=== PATIENT | male | born 1970 | race African-American/Black ===

== ENCOUNTER 2016-05-31 08:05 | Observation (INO) ==
[2016-05-31] MEDS ORDERED: ASPIRIN 325 MG TABLET PO STA (08:17)
[2016-05-31] MEDS ORDERED: ONDANSETRON 4 MG/2 ML VIAL IV STA (08:20)
[2016-05-31] MEDS ORDERED: MORPHINE 2 MG/1 ML SYRINGE IV STA (08:20)
[2016-05-31] MEDS ORDERED: ENOXAPARIN 80 MG/0.8 ML SYRINGE SUBCUT STA (08:20)
--- NOTE | 2016-05-31 08:24 | Emergency Department Note ---
Jarred Gaming Brittany, am scribing for, and in the presence of, Surjit Sanders MD 08: 22. Marilyn Gaming James D, MD, personally performed the services described in this documentation, ascribed by Haritha Stern in my presence, and it is both accurate and complete 823 . Arrival - Arrival Chief Complaint: Chest Pain Stated Complaint: CHEST PAINS ED Nursing Triage Note: C/o midsternal chest pain radiating to left arm-onset yesterday. Reports SOB with exertion. Denies N/V. Mode of Arrival: Ambulatory Limitations: No Limitations Source: Patient - History of Present Illness HPI Narrative: This is a a 46 y/o male,who presetns to the ED wiht c/o CP which started yesterday. He reports he was at rest when the chest pain started. He states the pain radiates down his left arm. He localizes the chest pain to the mid sternum. He denies any N/V, cough or diaphoresis. He states the chest pain is worse with exertion. He reports being SOB with the chest pain . He states at night he has noticed orthopnea. Pt has no other complaints/pain in the ED at this time. Pt denies a PMHx. Pt denies a social Hx. Pt denies a family medical Hx. Pt is a current every day smoker, uses alcohol frequently and uses marijuana. Onset (ago): day(s) (Started yesterday) Consistency: constant Severity: moderate Allergies/Adverse Reactions: Allergies Allergy/AdvReac Type Severity Reaction Status Date / Time No Known Allergies Allergy Verified 05/31/16 08:14 Home Medications: Home Medications Medication Instructions Recorded Confirmed Type No Known Home Medications [No 05/31/16 05/31/16 History Known Home Medications] Review of System - Review of System 12 point system: reviewed and no additional remarkable complaints except as stated - Review of System Constitutional: Absent: diaphoresis Respiratory: Absent: cough Cardiovascular: Present: chest pain, dyspnea on exertion, orthopnea, other ( Dyspnea) Gastrointestinal: Absent: nausea, vomiting Medical,Surgical,& Family Hx - Social History Smoking Status: Current every day smoker Frequency of Alcohol Use: Frequently Type of Drug Use: Marijuana Exam Vital Signs: Vital Signs Temperature 96.4 F L 05/31/16 08:43 Pulse Rate 84 05/31/16 08:43 Respiratory Rate 18 05/31/16 08:43 Blood Pressure 175/106 05/31/16 08:43 O2 Sat by Pulse Oximetry 97 05/31/16 08:09 GENERAL: This is a well-nourished well-developed black male in no apparent distress. VITAL SIGNS: Reviewed HEENT: Head is atraumatic and normocephalic. Pupils are equal round react to light. Extraocular movements are intact. Oropharynx is benign with moist mucous membranes. NECK: Neck is soft and supple without tenderness. There are no masses. There is no lymphadenopathy. LUNGS: Lungs are clear to auscultation. Chest rises symmetrically. There is no chest wall tenderness. CV: Heart is regular rate and rhythm without murmurs rubs or gallops. ABDOMEN: Abdomen is soft, nontender to palpation. There are no abdominal abnormal masses palpated. There is no organomegaly. Bowel sounds are present and active. SKIN: Skin is warm and dry. No rash. EXTREMITIES: Patient has full range of motion without tenderness. There is no pedal edema. NEUROLOGIC: Awake alert and oriented 4. Cranial nerves II through XII are grossly intact. Motor is 5 over 5 in all extremities bilaterally. Course - Consultations Consultation #1: Discussed with hospitalist. Patient will be admitted to their service. Time: 09:39 Results - Labs CBC & BMP: 05/31/16 08:17 05/31/16 08:17 Lab Results: I have reviewed the patients labs Labs: Laboratory Tests 05/31/16 05/31/16 05/31/16 08:17 08:17 08:17 INR 1.1 Troponin I < 0.015 Urine Opiates Screen Negative Ur Barbiturates Screen Negative Ur Phencyclidine Scrn Negative U Amphetamine/Methamph Negative U Benzodiazepines Scrn Negative U Cocaine Metab Screen Negative U Cannabinoids Screen Positive H - EKG EKG results: interpreted by ERMD - Impressions EKG: Normal sinus rhythm with a rate 86, low voltage QRS, normal axis., Nonspecific ST-T wave changes - Diagnostic Findings Procedure: Chest x-ray: image reviewed by me (Mild cardiomegaly, no pleural effusions, no infiltrates.) Disposition Clinical Impression: Chest pain Case discussed with: patient Disposition: Still a Patient Condition: Stable Time of Disposition: 09:39
[2016-05-31] MEDS ORDERED: ONDANSETRON 4 MG/2 ML VIAL ONE (08:49)
[2016-05-31] MEDS ORDERED: ENOXAPARIN 80 MG/0.8 ML SYRINGE SUBCUT ONE (08:49)
[2016-05-31] MEDS ORDERED: MORPHINE 2 MG/1 ML SYRINGE ONE (08:50)
[2016-05-31] MEDS ORDERED: ASPIRIN 325 MG TABLET ONE (08:50)
[2016-05-31 08:54] LABS: Basophils # 0.1 10*3/uL (0.0-0.2); Basophils % 0.7 % (0.0-0.8); Eosinophils # 0.2 10*3/uL (0.0-0.87); Eosinophils % 2.4 % (0.00-10.9); Hemoglobin 17.4 GM/DL (14.0-18.0); Immature Granulocytes % 0.5 %; Immature Granulocytes Absolute 0.04 #; Lymphocytes # 2.9 10*3/uL (1.4-4.0); Lymphocytes % 36.6 % (21.2-54.2); Mean Corpuscular HGB Conc 34.1 GM/DL (32-36); Mean Corpuscular Hemoglobin 28 PG (27-34); Mean Corpuscular Volume 82.1 FL (87-102); Mean Platelet Volume 9.6 FL (9.6-12.0); Monocytes # 0.6 10*3/uL (0.11-0.8); Monocytes % 7.5 % (1.7-12.7); Neutrophils # 4.2 10*3/uL (1.4-7.4); Neutrophils % 52.3 % (38.7-73.9); Platelet Count 271 T/CUMM (130-400); Red Blood Count 6.21 MC/CUMM (3.8-5.5); Red Cell Distribution Width 14.5 % (9.3-17.3)
--- NOTE | 2016-05-31 09:00 | XRay Report ---
History: Chest pain which radiates down left arm Date: 05/31/2016 at 7:50 AM Study: Chest x-ray PA and lateral Comparison exam: No previous The cardiac silhouette is minimally prominent. The mediastinal contours are unremarkable. The pulmonary vasculature is not engorged. The lungs and pleural spaces are clear. There is a minimal thoracic spondylosis. Impression: No acute cardiopulmonary process. Minimal cardiomegaly PROCEDURE INTERPRETED AT [facility] DEPARTMENT OF RADIOLOGY Final Report Signed by: Dr. Barbara Gill
[2016-05-31 09:03] LABS: Apearance,Urine CLEAR (Clear); Bilirubin,Urine Negative (Negative); Blood, Urine Negative (Negative); Glucose,Urine (UA) Negative (Negative); Ketones,Urine Negative (Negative); Nitrite,Urine Negative (Negative); Protein,Urine Negative; RBC,Urine <1 /HPF (0-4); Squamous Epithelial Cell,Urine Occasional /HPF (0-10); Urine Color Yellow (Yellow); Urine Specific Gravity 1.016 (1.001-1.035); Urine Urobilinogen < 2.0 EU/DL (0.2-1.0); WBC,Urine 1 /HPF (0-6)
[2016-05-31 09:10] LABS: Barbiturates Screen,Urine Negative (Negative); Benzodiazepines Screen,Urine Negative (Negative); Cannabinoid Screen,Urine Positive (Negative); INR 1.1; Opiate Screen,Urine Negative (Negative); PT Patient Result 11.3 SECS; Partial Thromboplastin Time 28.5 SECS (0-40); Phencyclidine Screen,Urine Negative (Negative)
[2016-05-31 09:13] LABS: Alanine Aminotransferase 35 U/L (16-61); Albumin 3.7 G/DL (3.4-5.0); Alkaline Phosphatase 80 U/L (45-117); Aspartate Amino Transferase 16 U/L (0-37); Bilirubin,Total < 0.39 MG/DL (0.2-1.0); Blood Urea Nitrogen 13 MG/DL (7-18); Glucose 124 MG/DL (74-106); Osmolality,Calculated 288.7 MOS/KG (273-304); Potassium 4.3 MMOL/L (3.5-5.1); Sodium 145 MMOL/L (136-145); Total Protein 6.9 G/DL (6.4-8.3)
--- NOTE | 2016-05-31 09:43 | EKG Report ---
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
[2016-05-31] MEDS ORDERED: METOPROLOL TARTRATE 5 MG/5 ML VIAL IV ONE (10:16)
[2016-05-31] MEDS ORDERED: ONDANSETRON 4 MG/2 ML VIAL IV PRN (10:21)
[2016-05-31] MEDS ORDERED: ACETAMINOPHEN 325 MG TABLET PO PRN (10:21)
[2016-05-31] MEDS ORDERED: NICOTINE 21 MG/24 HR PATCH TRANSDERM PRN (10:21)
[2016-05-31] MEDS ORDERED: METOPROLOL TARTRATE 5 MG/5 ML VIAL IV STA (10:30)
--- NOTE | 2016-05-31 10:43 | Hospitalist History & Physical ---
Assessment and Plan - Time spent with patient Time spent with patient: Less than 30 minutes Time spent discussing smoking cessation with patient: more than 10 minutes (1) Chest pain Status: Acute Assessment and plan: Chest pain with associated shortness of breath. Patient rates this as a 7 out of 10. Patient will be admitted for outpatient observation with a cardiology consult. Preliminary labs reveal no evidence of acute ischemic process. Repeat labs. Current Visit: Yes History of Present Illness Chief complaint: chest pain History of present illness: Mr. Christian is a 46 year old -[place] male with risk factors significant for hypertension, smoking, overweight who presents to the ED this morning with complaint of chest pain with associated shortness of breath since yesterday afternoon. The patient states that this pain radiates down his left arm, and he is experiencing tingling in his fingers. He reports that the pain began yesterday around 2:00 PM while watching his kids play. He said he felt a sharp pain in his left chest area then became continuous overnight. He has no known cardiac history or medical history as he does not see a physician for any matter. He does however admit to smoking cigarettes (1 pack a day) as well as marijuana and drinks 4-6 beers daily. On admission, preliminary EKG is abnormal , cardiac biomarkers are negative, and the patient rates his pain as 7 out of 10. It is of note that the patient tested positive for cannabinoids. Patient denies blurry vision, palpitations, orthopnea, headache. He will be admitted to outpatient observation with a cardiology consult for further recommendations. Home Medications Medication Instructions Recorded Confirmed Type No Known Home Medications [No 05/31/16 05/31/16 History Known Home Medications] Allergies Allergy/AdvReac Type Severity Reaction Status Date / Time No Known Allergies Allergy Verified 05/31/16 08:14 Medical,Surgical,& Family Hx - Social History Smoking Status: Current every day smoker Have you smoked in the last 12 months: Yes Time spent discussing smoking cessation with patient: more than 10 minutes Frequency of Alcohol Use: Frequently Type of Drug Use: Marijuana Marital Status: Lives With:: Spouse Functional capacity: independent ambulation - Constitutional Constitutional: Absent: chills, daytime sleepiness, fatigue, fever(s), headache( s), night sweats, stops breathing during sleep, weakness - EENT Eyes: Present: requires corrective lense (uses reading glasses). Absent: blurry vision Nose, mouth and throat: Absent: headache(s), neck mass, neck pain, sinus pressure, sore throat - Cardiovascular Cardiovascular: Present: chest pain at rest, dyspnea, radiating jaw, neck or arm pain. Absent: chest pain with activity, diaphoresis, edema, palpitations - Respiratory Respiratory: Present: dyspnea, snoring, pain on inspiration. Absent: cough, hemoptysis, wheezing - Gastrointestinal Gastrointestinal: Absent: abdominal pain, change in bowel habits, constipation, nausea, vomiting - Neurological Neurological: Present: numbness (in left fingers) Exam - Constitutional Vitals: Period Temp Pulse Resp BP Sys/Alvarado Pulse Ox Last 24 Hr 96.4 F-96.4 F 65-84 17-18 144-175/95-106 97-98 General appearance: no acute distress, over weight - Head Head exam: Present: normocephalic, atraumatic - Eye Eye exam: Present: EOMI. Absent: conjunctival injection, nystagmus Pupils: Present: AVIVA - Neck Neck exam: Absent: lymphadenopathy, tenderness, thyromegaly - Respiratory Respiratory exam: Present: clear to auscultation bilaterally. Absent: rales, rhonchi, wheezes - Cardiovascular Cardiovascular exam: Present: regular rate and rhythm. Absent: carotid bruit, gallop, JVD - GI/Abdominal GI/Abdominal exam: Present: normal bowel sounds, soft. Absent: ascites, distended, mass, tenderness - Extremities Exam Extremities exam: Present: normal capillary refill. Absent: edema - Neurological Exam Neurological exam: Present: alert, oriented X3, CN II-XII intact - Psychiatric Psychiatric exam: Present: normal affect, normal mood - Skin Skin exam: Present: normal color, warm, dry Results - Labs CBC & BMP: 05/31/16 08:17 05/31/16 08:17 Lab Results: I have reviewed the past 24 hour labs - EKG EKG results: interpreted by GISELA, sinus rhythm - Diagnostic Findings Procedure: Chest x-ray: report reviewed by me (no acute process)
[2016-05-31] MEDS ORDERED: PANTOPRAZOLE 40 MG TABLET PO ONE (11:05)
[2016-05-31] MEDS ORDERED: PANTOPRAZOLE 40 MG TABLET PO STA (11:22)
[2016-05-31 11:47] LABS: Risk Ratio 3.52
--- NOTE | 2016-05-31 14:13 | EKG Report ---
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
--- NOTE | 2016-05-31 14:22 | EKG Report ---
Stationary ECG Study 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
--- NOTE | 2016-05-31 17:00 | Cardiology Consult Note ---
Tatiana Gaming April, RN, am scribing for, and in the presence of, Ulises Sullivan MD 16:59. Assessment and Plan - Time spent with patient Time spent with patient: Greater than 30 minutes (Due to assessment, planning, and documentation) (1) Chest pain Status: Acute Assessment and plan: 1. 46-year-old BM smoker with persistent atypical chest pain with pleuritic component and tenderness to palpation since 4 p.m. yesterday with negative cardiac panel 3 and no acute EKG changes ((nonspecific ST-T changes only) 2. Benign physical examination with normal chest x-ray noted 3. Will give Toradol IV 1 4. Reassurance 5. He can be discharged this evening for cardiac standpoint (at this point patient is interested in going home if possible) 6. We'll see in follow-up in 2 weeks' time or sooner if needed. Current Visit: Yes History of Present Illness - Data of Consult Consult date: 05/31/16 Requesting Physician: Osmany Sifuentes - Consult Narrative Reason for consult: chest pain History of present illness: Mr. Christian is a 46 year old male who has never been seen by fraud examiner. Denies any past medical history or any past surgical history and denies taking any home medications on a routine basis. He does note that he had bright red blood in his stool about a month ago, he never got this worked up but he has noted none recently. Family history is positive for mother with diabetes and father with throat cancer. He reports that he smokes nearly one pack of cigarettes a day as well as occasional marijuana and consumes several beers per day. He was in his usual state of health until yesterday when he was sitting and began to have some chest pain that was in the left center part of his chest. He rated it as a 7 on a scale of 1-10 and said that yesterday it was not radiating but this morning it did begin to radiate to his left shoulder. He noticed no specific alleviators or triggers as he was sitting when the pain began and the pain has eased at times but has never completely resolved. Although he does state that the pain would get worse when he moved his left arm or he would try to sit up. Last night he also began to get short of breath along with this pain, saying that he was dyspneic when sitting as well as on exertion. This morning he also developed numbness of his left fingers. He denies any diaphoresis or nausea and vomiting with these symptoms. He presented to the emergency department this morning for further evaluation, and we have been consulted to see the patient. Currently patient is seen resting in bed in no acute distress. He says the medication they gave him in the ER did help the pain but he does continue to have some, he now rates it as a 5 on a scale of 1-10. He states the numbness in his fingers and the shortness of breath has improved. His blood pressures on admission were elevated to 170s over 100. He was given Lopressor 5 mg IV in the ER 1 dose, his pressures have improved somewhat. The most current on the vital sign record being 144/95. EKG's show sinus bradycardia with heart rates in the 50s. Troponin has been negative 2. Urine drug screen was positive for cannabinoids. Kidney function and electrolytes within normal limits. CC: Juvenal Arredondo MD - Home Medications and Allergies Home Medications: Home Medications Medication Instructions Recorded Confirmed Type No Known Home Medications [No 05/31/16 05/31/16 History Known Home Medications] Allergies/Adverse Reactions: Allergies Allergy/AdvReac Type Severity Reaction Status Date / Time No Known Allergies Allergy Verified 05/31/16 08:14 - Constitutional Constitutional: Present: as per HPI - EENT Eyes: Present: requires corrective lense. Absent: blurry vision Ears: Absent: decreased hearing, tinnitus Nose, mouth and throat: Absent: epistaxis, headache(s), neck pain, sore throat - Cardiovascular Cardiovascular: Present: chest pain at rest, chest pain with activity, dyspnea, dyspnea on exertion, radiating jaw, neck or arm pain. Absent: diaphoresis, edema, lightheadedness, orthopnea, palpitations - Respiratory Respiratory: Present: dyspnea, dyspnea on exertion. Absent: cough, hemoptysis, wheezing - Gastrointestinal Gastrointestinal: Present: other (Reports having bright red blood is still about a month ago but this has subsided). Absent: abdominal pain, constipation , diarrhea, hematemesis, nausea, vomiting - Genitourinary Genitourinary: Absent: difficulty urinating, dysuria, hematuria - Musculoskeletal Musculoskeletal: Absent: back pain, limited range of motion, muscle weakness - Neurological Neurological: Present: numbness (In fingers on left hand). Absent: abnormal gait, abnormal speech, confusion, dizziness, frequent falls, headache(s), syncope - Psychiatric Psychiatric: Absent: confusion, depression - Endocrine Endocrine: Absent: fatigue - Hematologic/Lymphatic Hematologic/Lymphatic: Absent: easy bleeding, easy bruising Medical,Surgical,& Family Hx - Medical History Medical History: noncontributory (Denies any past medical history) - Surgical History Surgical History: noncontributory (Denies any past surgical history) - Family History Family History: Reports;: Family Cancer (Father of throat cancer), Family Diabetes (Mother has diabetes) - Social History Smoking Status: Current every day smoker (Smokes nearly a pack a day) Have you smoked in the last 12 months: Yes Time spent discussing smoking cessation with patient: 3 to 10 minutes Frequency of Alcohol Use: Frequently Type of Drug Use: Marijuana Marital Status: Lives With:: Spouse Functional capacity: independent ambulation Physical Examination Vital Signs Temp Pulse Resp BP Pulse Ox 96.4 F L 84 18 175/106 97 05/31/16 08:09 05/31/16 08:09 05/31/16 08:09 05/31/16 08:09 05/31/16 08:09 General: Present: Appears Well, No Apparent Distress HEENT: Present: PERRL, Mucus Membranes Moist Neck: Present: Supple Neck, Midline Trachea, No JVD/HJR, No Bruit Cardiac: Present: Reg Rate and Rhythm, No Murmur, Bradycardia Lungs: Present: Normal Breath Sounds, No Wheeze, Rales, Rhonchi. Absent: Oxygen Neuro: Present: Numbness (In fingers on left hand). Absent: Essential Tremor Abdomen: Present: Soft, Active Bowel Sounds, Non-Tender. Absent: Distended Skin: Present: Clear Musculoskeletal: Present: No Pain, Normal Range of Motion Gait: Present: Normal Gait Extremities: Present: Normal Gait, No Edema, Normal Upper Extr. Pulses, Normal Lower Extr. Pulses Result/EKG - Labs CBC & BMP: 05/31/16 08:17 05/31/16 08:17 Lab Results: I have reviewed the past 24 hour labs Labs: Laboratory Results - last 24 hr 05/31/16 13:09 Troponin I < 0.015 - EKG EKG results: interpreted by me EKG shows: bradycardia, sinus rhythm Specialty Discharge - Follow Up or Referrals Follow up with: Ulises Sullivan MD [Physician] - 2 Weeks I, Ulises Sullivan MD, personally performed the services described in this documentation, ascribed by Krissy Simpson RN in my presence, and it is both accurate and complete 659 .
[2016-05-31] MEDS ORDERED: IBUPROFEN 200 MG TABLET PO PRN (17:38)
[2016-06-01 07:15] LABS: Basophils # 0.1 10*3/uL (0.0-0.2); Basophils % 1.3 % (0.0-0.8); Eosinophils # 0.2 10*3/uL (0.0-0.87); Hematocrit 51.2 VOL% (42.0-52.0); Hemoglobin 17.3 GM/DL (14.0-18.0); Immature Granulocytes % 0.4 %; Immature Granulocytes Absolute 0.03 #; Lymphocytes # 3.5 10*3/uL (1.4-4.0); Lymphocytes % 45.8 % (21.2-54.2); Mean Corpuscular HGB Conc 33.8 GM/DL (32-36); Mean Corpuscular Hemoglobin 28 PG (27-34); Mean Corpuscular Volume 83.5 FL (87-102); Mean Platelet Volume 9.6 FL (9.6-12.0); Monocytes # 0.6 10*3/uL (0.11-0.8); Monocytes % 7.5 % (1.7-12.7); Neutrophils # 3.2 10*3/uL (1.4-7.4); Platelet Count 249 T/CUMM (130-400); Red Blood Count 6.13 MC/CUMM (3.8-5.5); Red Cell Distribution Width 15.1 % (9.3-17.3); White Blood Count 7.6 T/CUMM (4-12)
[2016-06-01 07:54] LABS: Calcium 8.7 MG/DL (8.5-10.1); Osmolality,Calculated 287.7 MOS/KG (273-304); Potassium 4.3 MMOL/L (3.5-5.1); Thyroid Stimulating Hormone 1.76 uIU/ml (0.358-3.74)
[2016-06-01] MEDS ORDERED: KETOROLAC 15 MG/1 ML VIAL IM ONE (08:42)
[2016-06-01] MEDS ORDERED: PANTOPRAZOLE 40 MG TABLET PO SCH (09:00)
--- NOTE | 2016-06-01 10:39 | Hospitalist Progress Note ---
Hospitalist: Subjective Interval history: Ms. Calixto is a 57 year old female with past medical history is significant for lymphedema, morbid obesity chronic leg wounds and history of cellulitis. She was admitted 05/29/2016 with the worsening of wound and cellulitis. She was started on IV antibiotics with vancomycin and Zosyn. She was seen by Dr. Osborne. She underwent bilateral selective debridement lower extremity ulcer including slough and exudate. Now she is on Unasyn . She has a blood culture positive for Streptococcus pyogenes 1 out of 2 bottles. Repeat blood c/s negative. She was noted to have worsening renal functions and hypotension yesterday. IVF started Pt has poor uop/oliguria. low grade fever and some cough reported. Exam - Constitutional Vitals: Period Temp Pulse Resp BP Sys/Alvarado Pulse Ox Last 24 Hr 96.9 F-98.4 F 57-75 17-24 133-153/65-89 93-97 General appearance: no acute distress, morbidly obese - Respiratory Respiratory exam: Present: clear to auscultation bilaterally. Absent: rales, rhonchi - Cardiovascular Cardiovascular exam: Present: regular rate and rhythm, systolic murmur. Absent : tachycardia - GI/Abdominal GI/Abdominal exam: Present: normal bowel sounds (chronci lymphedema . wound bilateral lwoer extremities dressed ), soft. Absent: tenderness - Extremities Exam Extremities exam: Present: edema - Neurological Exam Neurological exam: Present: alert, oriented X3 Results - Labs CBC & BMP: 06/01/16 06:32 06/01/16 06:32 Specialty Discharge - Follow Up or Referrals Follow up with: Ulises Sullivan MD [Physician] - 06/14/16 8:40 am
--- NOTE | 2016-06-01 11:27 | Discharge Summary ---
Hospital Course - Hospital Course Hospital Course: Mr. Christian was admitted for chest pain. He has history of tobacco use but denied any hypertension diabetes or dyslipidemia . There is no family history of premature cardiac disease. He does have history of marijuana use. He was admitted for observation with a chest pain x 1 day. He reported and is been constant at baseline with the exacerbation time to time. Questionable sob. Pain was initially dull that become throbbing not associated with any nausea vomiting or diaphoresis. It was radiating to left shoulder. Pain is nonexertional. He does not do a plan exercise but very active physically and climb stairs and walk about a mile work and has no dyspnea or shortness of breath. He had a negative troponin and the EKG did not show any significant for coronary ischemia. His physical exam was unremarkable. His blood pressure was elevated and do the urine was positive for cannabinoids. He was seen by sheeba also pain is no cardiac and improved after nsaids. and was ok for dc home. PT thsi am feel well without any chest pain. He is asked to quit smoking and illicit drug use . He had decline help but encourage to follow with pcp. Bp also borderline elevated some fluctuation. He need to have pcp. He planned to get pccp on his own locally. He will be dc home Diagnosis - Discharge Diagnosis (1) Atypical chest pain Status: Acute (2) Elevated BP without diagnosis of hypertension Status: Acute (3) Smoker Status: Acute Specialty Discharge - Follow Up or Referrals Follow up with: Ulises Sullivan MD [Physician] - 06/14/16 8:40 am Discharge Plan - Discharge Data Disposition: Disch To Home/Self Care Condition at Discharge: Stable Discharge Diet: low salt diet Activity: resume usual activities as tolerated - Discharge Medications No Action No Known Home Medications [No Known Home Medications] - Follow Up or Referral Follow Up: Ulises Sullivan MD [Physician] - 06/14/16 8:40 am - Forms/Instructions Exam - Constitutional Vitals: Period Temp Pulse Resp BP Sys/Alvarado Pulse Ox Last 24 Hr 96.9 F-98.4 F 57-75 17-24 133-153/65-89 93-97 General appearance: no acute distress - Respiratory Respiratory exam: Present: clear to auscultation bilaterally. Absent: rales, rhonchi - Cardiovascular Cardiovascular exam: Present: regular rate and rhythm. Absent: tachycardia - GI/Abdominal GI/Abdominal exam: Present: normal bowel sounds, soft. Absent: tenderness - Extremities Exam Extremities exam: Present: normal inspection. Absent: edema - Neurological Exam Neurological exam: Present: alert, oriented X3 Discharge Results Labs on day of discharge: Labs from last 24 hours 06/01/16 06/01/16 06/01/16 06:32 06:32 06:32 WBC 7.6 RBC 6.13 H Hgb 17.3 Hct 51.2 MCV 83.5 L MCH 28 MCHC 33.8 RDW 15.1 Plt Count 249 MPV 9.6 Neut % (Auto) 42.0 Lymph % (Auto) 45.8 [place] % (Auto) 7.5 Eos % (Auto) 3.0 Baso % (Auto) 1.3 H Neut # (Auto) 3.2 Lymph # (Auto) 3.5 [place] # (Auto) 0.6 Eos # (Auto) 0.2 Baso # (Auto) 0.1 Immature Gran % 0.4 Nucleated RBC % 0.0 Immature Gran # 0.03 Nucleated RBCs # 0.00 Sodium 145 Potassium 4.3 Chloride 110 H Carbon Dioxide 25 Anion Gap 14.3 BUN 13 Creatinine 1.00 GFR Calculation 125 BUN/Creatinine Ratio 13.00 Glucose 97 Calculated Osmolality 287.7 Calcium 8.7 Troponin I Free T4 1.03 TSH 3rd Generation 1.760 05/31/16 05/31/16 05/31/16 17:09 14:47 13:09 WBC RBC Hgb Hct MCV MCH MCHC RDW Plt Count MPV Neut % (Auto) Lymph % (Auto) [place] % (Auto) Eos % (Auto) Baso % (Auto) Neut # (Auto) Lymph # (Auto) [place] # (Auto) Eos # (Auto) Baso # (Auto) Immature Gran % Nucleated RBC % Immature Gran # Nucleated RBCs # Sodium Potassium Chloride Carbon Dioxide Anion Gap BUN Creatinine GFR Calculation BUN/Creatinine Ratio Glucose Calculated Osmolality Calcium Troponin I < 0.015 < 0.015 < 0.015 Free T4 TSH 3rd Generation DS: Provider Date of admission: 05/31/16 09:44 Primary care physician: . No PCP Attending physician on admission: Juvenal Arredondo MD Consults: 05/31/16 10:21 Consult to Physician [CONS] Routine Comment: Consulting Provider: Cardiology - [facility] Consult to Specialist Group: Cardiology When should Consulting Provider be notified: Now Person Notified: JEANNE Date Notified: 05/31/16 Time Notified: 14:04 Discharging clinician: Juvenal Arredondo MD
[2016-06-01 12:00] VITALS: BP 148/70
--- NOTE | 2016-06-01 14:43 | Cardiology Progress Note ---
Assessment and Plan (1) Chest pain Status: Acute Assessment and plan: 1. 46-year-old BM smoker with persistent atypical chest pain with pleuritic component and tenderness to palpation since 4 p.m. yesterday with negative cardiac panel 3 and no acute EKG changes ((nonspecific ST-T changes only) 2. Benign physical examination with normal chest x-ray noted 3. Will give Toradol IV 1 4. Reassurance 5. He can be discharged this evening for cardiac standpoint (at this point patient is interested in going home if possible) 6. We'll see in follow-up in 2 weeks' time or sooner if needed. 06/01/2016 update: 1. Mr. Christian is significantly improved today but still has some mild persistent chest pain 2. Toradol IV 15 mg; reassurance, as this is very likely to represent a cardiac problem. 3. I will be happy to see the follow-up in 2-3 weeks' time to follow-up his symptoms. 4. No new recommendations, he can be discharged from a cardiac standpoint. Cardiology - PN: Subj Interval history: Mr. Christian is feeling much better today, but still has some mild persistent chest discomfort which is been persisting for days. I discussed with him that this is very unlikely to be cardiac in etiology which he seems to agree with. I will follow given a Toradol shot to help him get some relief. He is not really having shortness of breath today and is anxious for discharge. Exam (Progress Note) - Constitutional Vitals: Period Temp Pulse Resp BP Sys/Alvarado Pulse Ox Last 24 Hr 96.9 F-98.4 F 64-75 17-24 133-153/65-89 93-97 General appearance: normal weight, no acute distress - Head Head exam: Present: normal inspection, normocephalic, atraumatic - Neck Neck exam: Present: normal inspection - Respiratory Respiratory exam: Present: clear to auscultation bilaterally. Absent: stridor, wheezes - Cardiovascular Cardiovascular exam: Present: regular rate and rhythm. Absent: diastolic murmur , rubs, systolic murmur - GI/Abdominal GI/Abdominal exam: Present: soft. Absent: tenderness - Extremities Exam Extremities exam: Absent: edema Result/EKG - Labs CBC & BMP: 06/01/16 06:32 06/01/16 06:32 Labs: Laboratory Results - last 24 hr 05/31/16 05/31/16 06/01/16 14:47 17:09 06:32 WBC 7.6 RBC 6.13 H Hgb 17.3 Hct 51.2 MCV 83.5 L MCH 28 MCHC 33.8 RDW 15.1 Plt Count 249 MPV 9.6 Neut % (Auto) 42.0 Lymph % (Auto) 45.8 [place] % (Auto) 7.5 Eos % (Auto) 3.0 Baso % (Auto) 1.3 H Neut # (Auto) 3.2 Lymph # (Auto) 3.5 [place] # (Auto) 0.6 Eos # (Auto) 0.2 Baso # (Auto) 0.1 Immature Gran % 0.4 Nucleated RBC % 0.0 Immature Gran # 0.03 Nucleated RBCs # 0.00 Sodium Potassium Chloride Carbon Dioxide Anion Gap BUN Creatinine GFR Calculation BUN/Creatinine Ratio Glucose POC Glucose Calculated Osmolality Calcium Troponin I < 0.015 < 0.015 Free T4 TSH 3rd Generation 06/01/16 06/01/16 06/01/16 06:32 06:32 10:51 WBC RBC Hgb Hct MCV MCH MCHC RDW Plt Count MPV Neut % (Auto) Lymph % (Auto) [place] % (Auto) Eos % (Auto) Baso % (Auto) Neut # (Auto) Lymph # (Auto) [place] # (Auto) Eos # (Auto) Baso # (Auto) Immature Gran % Nucleated RBC % Immature Gran # Nucleated RBCs # Sodium 145 Potassium 4.3 Chloride 110 H Carbon Dioxide 25 Anion Gap 14.3 BUN 13 Creatinine 1.00 GFR Calculation 125 BUN/Creatinine Ratio 13.00 Glucose 97 POC Glucose 92 Calculated Osmolality 287.7 Calcium 8.7 Troponin I Free T4 1.03 TSH 3rd Generation 1.760 Specialty Discharge - Follow Up or Referrals Follow up with: Ulises Sullivan MD [Physician] - 06/14/16 8:40 am
== END 2016-06-01 12:04 | disposition home or self-care (01) ==
LOC: N.EDINP 08:05 → N.ED 08:05 → N.2E 13:30
PROVIDERS: ADMIT Internal Medicine; ATTEND Internal Medicine

== ENCOUNTER 2017-11-11 04:32 | Observation (INO) ==
[2017-11-11] MEDS ORDERED: MORPHINE 4 MG/1 ML VIAL IV STA (04:55)
[2017-11-11] MEDS ORDERED: ONDANSETRON 4 MG/2 ML VIAL IV STA (04:55)
[2017-11-11 05:20] LABS: Basophils # 0.1 10*3/uL (0.0-0.2); Basophils % 0.8 % (0.0-0.8); Eosinophils # 0.2 10*3/uL (0.0-0.87); Eosinophils % 1.4 % (0.00-10.9); Hematocrit 51.6 VOL% (42.0-52.0); Hemoglobin 18.1 GM/DL (14.0-18.0); Immature Granulocytes % 0.4 %; Immature Granulocytes Absolute 0.04 #; Lymphocytes % 44.9 % (21.2-54.2); Mean Corpuscular HGB Conc 35.1 GM/DL (32-36); Mean Corpuscular Hemoglobin 29 PG (27-34); Mean Corpuscular Volume 83.9 FL (87-102); Mean Platelet Volume 9.2 FL (9.6-12.0); Monocytes # 0.6 10*3/uL (0.11-0.8); Monocytes % 5.5 % (1.7-12.7); Neutrophils # 5.2 10*3/uL (1.4-7.4); Platelet Count 331 T/CUMM (130-400); Red Blood Count 6.15 MC/CUMM (3.8-5.5); Red Cell Distribution Width 14.1 % (9.3-17.3); White Blood Count 11.1 T/CUMM (4-12)
[2017-11-11 06:10] LABS: Alanine Aminotransferase 126 U/L (16-61); Albumin 3.3 G/DL (3.4-5.0); Alkaline Phosphatase 131 U/L (45-117); Amylase 56 U/L (25-115); Aspartate Amino Transferase 228 U/L (0-37); Blood Urea Nitrogen 11 MG/DL (7-18); Calcium 8.2 MG/DL (8.5-10.1); Glucose 161 MG/DL (74-106); Osmolality,Calculated 280.4 MOS/KG (273-304); Potassium 3.9 MMOL/L (3.5-5.1); Sodium 140 MMOL/L (136-145); Total Protein 6.8 G/DL (6.4-8.3)
[2017-11-11 06:28] LABS: Apearance,Urine CLEAR (Clear); Bilirubin,Urine Negative (Negative); Blood, Urine Negative (Negative); Glucose,Urine (UA) Negative (Negative); Ketones,Urine Negative (Negative); Mucus,Urine Occasional /LPF (Occasional); Nitrite,Urine Negative (Negative); Protein,Urine Negative; RBC,Urine 1 /HPF (0-4); Urine Color Amber (Yellow); Urine Specific Gravity 1.017 (1.001-1.035); WBC,Urine 1 /HPF (0-6)
[2017-11-11 10:17] LABS: Hepatitis A Ab IgM Quant 0.24 Index; Hepatitis A Ab IgM Result Negative (Negative); Hepatitis B Core IgM Quant < 0.05 Index; Hepatitis B Core IgM Result Negative (Negative); Hepatitis B Surface Ag Quant < 0.10 Index; Hepatitis B Surface Ag Result Negative (Negative); Hepatitis C Virus Ab Quant < 0.02 Index; Hepatitis C Virus Ab Result Negative (Negative)
[2017-11-11] MEDS ORDERED: cefOXitin 2,000 MG in SYRINGE 1 EACH IV ONE (10:49)
[2017-11-11] MEDS ORDERED: ACETAMINOPHEN 325 MG TABLET PO PRN (10:58)
[2017-11-11] MEDS ORDERED: MORPHINE 4 MG/1 ML VIAL IV PRN (10:58)
[2017-11-11] MEDS ORDERED: ONDANSETRON 4 MG/2 ML VIAL IV PRN ×3 (10:58→13:41)
[2017-11-11] MEDS ORDERED: ENOXAPARIN 40 MG/0.4 ML SYRINGE SUBCUT SCH (11:00)
[2017-11-11] MEDS ORDERED: THIAMINE 100 MG TABLET PO SCH (11:00)
[2017-11-11] MEDS ORDERED: MULTIVITAMIN (INTRINSIC) CAPSULE PO SCH (11:00)
[2017-11-11] MEDS ORDERED: LIDOCAINE 1%/EPI INJ 20 ML VIAL ONE (11:01)
[2017-11-11] MEDS ORDERED: TISSUE ADHESIVE 1 EACH APPLICATOR TOP ONE (11:01)
[2017-11-11] MEDS ORDERED: diphenhydrAMINE 50 MG/1 ML VIAL IV PRN ×2 (11:08→13:41)
[2017-11-11] MEDS ORDERED: HYDROmorphone 2 MG/1 ML VIAL IV PRN (11:08)
[2017-11-11] MEDS ORDERED: NALOXONE 0.4 MG/ML VIAL IV PRN (11:08)
[2017-11-11] MEDS ORDERED: LACTATED RINGERS 1,000 ML IV SCH (11:30)
[2017-11-11] MEDS ORDERED: SUGAMMADEX 200 MG/2 ML VIAL IV ONE (12:58)
[2017-11-11] MEDS ORDERED: ALBUTEROL/IPRATROPIUM 3 ML NEB RESP TX SCH (13:00)
[2017-11-11] MEDS: ALBUTEROL 2.5 MG/3 ML NEB RESP TX ONE ×2 (13:30→14:23)
[2017-11-11] MEDS: MEPERIDINE 25 MG/1 ML VIAL IV PRN ×2 (13:30→13:46)
[2017-11-11] MEDS ORDERED: MEPERIDINE 25 MG/1 ML VIAL ONE ×2 (13:31→13:46)
[2017-11-11] MEDS ORDERED: hydrALAZINE 20 MG/1 ML VIAL ONE (13:32)
[2017-11-11] MEDS ORDERED: ONDANSETRON 4 MG/2 ML VIAL ONE (13:32)
[2017-11-11] MEDS ORDERED: DEXAMETHASONE 10 MG/1 ML VIAL ONE (13:39)
[2017-11-11] MEDS ORDERED: SEVOFLURANE 1 UNIT/15 MINUTE INH ONE (13:39)
[2017-11-11] MEDS ORDERED: PROPOFOL 200 MG/20 ML VIAL IV ONE (13:39)
[2017-11-11] MEDS ORDERED: MIDAZOLAM 2 MG/2 ML VIAL ONE (13:39)
[2017-11-11] MEDS ORDERED: fentaNYL 100 MCG/2 ML VIAL ONE (13:39)
[2017-11-11] MEDS ORDERED: LABETALOL 100 MG/20 ML VIAL IV ONE (13:40)
[2017-11-11] MEDS ORDERED: NEOSTIGMINE 10 MG/10 ML VIAL ONE (13:40)
[2017-11-11] MEDS ORDERED: GLYCOPYRROLATE 0.4 MG/2 ML VIAL ONE (13:40)
[2017-11-11] MEDS ORDERED: SUCCINYLCHOLINE 200 MG/10 ML VIAL ONE (13:40)
[2017-11-11] MEDS ORDERED: ROCURONIUM 100 MG/10 ML VIAL IV ONE (13:40)
[2017-11-11] MEDS ORDERED: MORPHINE 10 MG/1 ML VIAL IV PRN (13:41)
[2017-11-11] MEDS ORDERED: PROMETHAZINE INJ 25 MG in SODIUM CHLORIDE 0.9% 50 ML IV PRN (13:41)
[2017-11-11] MEDS ORDERED: hydrALAZINE 20 MG/1 ML VIAL IV ONE (13:42)
[2017-11-11] MEDS: LACTATED RINGERS 1,000 ML IV SCH ×2 (14:15→14:28)
[2017-11-11 17:46] VITALS: BP 194/101
[2017-11-12] MEDS ORDERED: ENOXAPARIN 40 MG/0.4 ML SYRINGE SUBCUT SCH (09:00)
[2017-11-12] MEDS ORDERED: PANTOPRAZOLE 40 MG TABLET PO SCH (09:00)
== END 2017-11-11 18:05 | disposition home or self-care (01) ==
LOC: N.EDINP 04:32 → N.ED 04:32 → N.5E 11:40
PROVIDERS: ADMIT Surgery; ATTEND Surgery
PROC: LAPCHOL (2017-11-11 11:50)

== ENCOUNTER 2019-02-20 07:32 | Inpatient (IN) ==
[2019-02-20 08:47] LABS: Basophils # 0.1 10*3/uL (0.0-0.2); Basophils % 0.3 % (0.0-0.8); Eosinophils % 0.2 % (0.00-10.9); Hemoglobin 17.8 GM/DL (14.0-18.0); Immature Granulocytes % 0.4 %; Immature Granulocytes Absolute 0.06 #; Lymphocytes # 1.2 10*3/uL (1.4-4.0); Lymphocytes % 7.3 % (21.2-54.2); Mean Corpuscular HGB Conc 34.2 GM/DL (32-36); Mean Corpuscular Volume 86.7 FL (87-102); Mean Platelet Volume 9.2 FL (9.6-12.0); Monocytes % 5.3 % (1.7-12.7); Neutrophils % 86.5 % (38.7-73.9); Platelet Count 274 T/CUMM (130-400); Red Cell Distribution Width 13.6 % (9.3-17.3); White Blood Count 16.5 T/CUMM (4-12)
[2019-02-20 09:06] LABS: Albumin 3.4 G/DL (3.4-5.0); Bilirubin,Total 0.6 MG/DL (0.2-1.0); Calcium 8.7 MG/DL (8.5-10.1); Osmolality,Calculated 283.3 MOS/KG (273-304); Total Protein 7.4 G/DL (6.4-8.3)
[2019-02-20] MEDS ORDERED: SODIUM CHLORIDE 0.9% 1,000 ML IV STA (09:11)
[2019-02-20] MEDS ORDERED: MORPHINE 4 MG/1 ML VIAL IV STA (09:11)
[2019-02-20 09:51] LABS: Apearance,Urine CLEAR (Clear); Bilirubin,Urine Negative (Negative); Blood, Urine Small mg/dL (Negative); Glucose,Urine (UA) Negative (Negative); Ketones,Urine Negative (Negative); Mucus,Urine Occasional /LPF (Occasional); Nitrite,Urine Negative (Negative); Protein,Urine Negative; RBC,Urine 3 /HPF (0-4); Urine Color Yellow (Yellow); Urine Specific Gravity 1.011 (1.001-1.035); Urine Urobilinogen < 2.0 EU/DL (0.2-1.0); WBC,Urine 4 /HPF (0-6)
[2019-02-20] MEDS ORDERED: ONDANSETRON 4 MG/2 ML VIAL IV PRN (12:55)
[2019-02-20] MEDS ORDERED: ALBUTEROL/IPRATROPIUM 3 ML NEB RESP TX PRN (12:57)
[2019-02-20] MEDS ORDERED: ACETAMINOPHEN 325 MG TABLET PO PRN (12:57)
[2019-02-20] MEDS ORDERED: PIPERACILLIN/TAZOBACTAM 3,375 MG in SODIUM CHLORIDE 0.9% 100 ML IV STA (13:21)
[2019-02-20] MEDS: metroNIDAZOLE INJ 500 MG in PREMIX 1 EACH IV SCH ×2 (13:55→19:53)
[2019-02-20] MEDS: HYDROmorphone 2 MG/1 ML VIAL IV PRN ×3 (13:56→21:35)
[2019-02-20] MEDS: LACTATED RINGERS 1,000 ML IV SCH ×2 (13:56→22:42)
[2019-02-20] MEDS: hydrALAZINE 20 MG/1 ML VIAL IV PRN (19:52)
[2019-02-20] MEDS: PIPERACILLIN/TAZOBACTAM 3,375 MG in SODIUM CHLORIDE 0.9% 100 ML IV SCH (21:40)
[2019-02-21] MEDS: LACTATED RINGERS 1,000 ML IV SCH ×2 (01:31→14:46)
[2019-02-21] MEDS: metroNIDAZOLE INJ 500 MG in PREMIX 1 EACH IV SCH ×4 (01:32→20:46)
[2019-02-21] MEDS: HYDROmorphone 2 MG/1 ML VIAL IV PRN ×7 (01:51→20:04)
[2019-02-21 05:24] LABS: Basophils # 0.1 10*3/uL (0.0-0.2); Basophils % 0.4 % (0.0-0.8); Eosinophils # 0.1 10*3/uL (0.0-0.87); Eosinophils % 0.6 % (0.00-10.9); Hematocrit 46.6 VOL% (42.0-52.0); Hemoglobin 16.1 GM/DL (14.0-18.0); Immature Granulocytes % 0.5 %; Immature Granulocytes Absolute 0.09 #; Lymphocytes # 1.4 10*3/uL (1.4-4.0); Lymphocytes % 7.2 % (21.2-54.2); Mean Corpuscular HGB Conc 34.5 GM/DL (32-36); Mean Corpuscular Volume 85.3 FL (87-102); Mean Platelet Volume 9.8 FL (9.6-12.0); Monocytes % 6.6 % (1.7-12.7); Neutrophils % 84.7 % (38.7-73.9); Platelet Count 248 T/CUMM (130-400); Red Blood Count 5.46 MC/CUMM (3.8-5.5); Red Cell Distribution Width 13.4 % (9.3-17.3); White Blood Count 19.5 T/CUMM (4-12)
[2019-02-21] MEDS: PIPERACILLIN/TAZOBACTAM 3,375 MG in SODIUM CHLORIDE 0.9% 100 ML IV SCH ×3 (05:42→21:52)
[2019-02-21 05:57] LABS: Calcium 8.5 MG/DL (8.5-10.1); Osmolality,Calculated 285.8 MOS/KG (273-304)
[2019-02-21] MEDS: PANTOPRAZOLE 40 MG TABLET PO SCH (09:18)
[2019-02-22] MEDS: HYDROmorphone 2 MG/1 ML VIAL IV PRN ×6 (00:48→23:36)
[2019-02-22] MEDS: metroNIDAZOLE INJ 500 MG in PREMIX 1 EACH IV SCH ×4 (02:16→20:00)
[2019-02-22] MEDS: LACTATED RINGERS 1,000 ML IV SCH ×2 (02:22→15:07)
[2019-02-22] MEDS: PIPERACILLIN/TAZOBACTAM 3,375 MG in SODIUM CHLORIDE 0.9% 100 ML IV SCH ×3 (05:48→22:13)
[2019-02-22] MEDS: PANTOPRAZOLE 40 MG TABLET PO SCH (07:59)
[2019-02-23] MEDS: HYDROmorphone 2 MG/1 ML VIAL IV PRN ×7 (00:16→23:32)
[2019-02-23] MEDS: metroNIDAZOLE INJ 500 MG in PREMIX 1 EACH IV SCH ×2 (03:35→09:46)
[2019-02-23] MEDS: LACTATED RINGERS 1,000 ML IV SCH ×3 (03:43→16:55)
[2019-02-23] MEDS: PIPERACILLIN/TAZOBACTAM 3,375 MG in SODIUM CHLORIDE 0.9% 100 ML IV SCH ×3 (05:49→21:05)
[2019-02-23 06:15] LABS: Basophils # 0.1 10*3/uL (0.0-0.2); Basophils % 0.5 % (0.0-0.8); Eosinophils # 0.3 10*3/uL (0.0-0.87); Eosinophils % 1.8 % (0.00-10.9); Hematocrit 45.5 VOL% (42.0-52.0); Hemoglobin 15.7 GM/DL (14.0-18.0); Immature Granulocytes % 1.1 %; Lymphocytes # 1.4 10*3/uL (1.4-4.0); Lymphocytes % 7.4 % (21.2-54.2); Mean Corpuscular HGB Conc 34.5 GM/DL (32-36); Mean Corpuscular Volume 85.4 FL (87-102); Mean Platelet Volume 9.7 FL (9.6-12.0); Monocytes % 9.2 % (1.7-12.7); Platelet Count 272 T/CUMM (130-400); Red Blood Count 5.33 MC/CUMM (3.8-5.5); Red Cell Distribution Width 13.2 % (9.3-17.3); White Blood Count 18.4 T/CUMM (4-12)
[2019-02-23 06:43] LABS: Calcium 7.9 MG/DL (8.5-10.1)
[2019-02-23] MEDS ORDERED: POTASSIUM CHLORIDE 20 MEQ TABLET PO ONE (09:30)
[2019-02-23] MEDS: PANTOPRAZOLE 40 MG TABLET PO SCH (09:46)
[2019-02-24] MEDS: LACTATED RINGERS 1,000 ML IV SCH ×3 (03:36→21:41)
[2019-02-24] MEDS: HYDROmorphone 2 MG/1 ML VIAL IV PRN ×4 (03:59→20:55)
[2019-02-24] MEDS: PIPERACILLIN/TAZOBACTAM 3,375 MG in SODIUM CHLORIDE 0.9% 100 ML IV SCH ×3 (05:15→21:45)
[2019-02-24 05:20] LABS: Basophils # 0.1 10*3/uL (0.0-0.2); Basophils % 0.7 % (0.0-0.8); Eosinophils # 0.4 10*3/uL (0.0-0.87); Eosinophils % 2.9 % (0.00-10.9); Hematocrit 42.8 VOL% (42.0-52.0); Hemoglobin 14.8 GM/DL (14.0-18.0); Immature Granulocytes % 0.9 %; Immature Granulocytes Absolute 0.13 #; Lymphocytes # 2.1 10*3/uL (1.4-4.0); Lymphocytes % 14.5 % (21.2-54.2); Mean Corpuscular HGB Conc 34.6 GM/DL (32-36); Mean Corpuscular Volume 85.9 FL (87-102); Mean Platelet Volume 9.5 FL (9.6-12.0); Monocytes % 9.7 % (1.7-12.7); Neutrophils % 71.3 % (38.7-73.9); Platelet Count 282 T/CUMM (130-400); Red Blood Count 4.98 MC/CUMM (3.8-5.5); Red Cell Distribution Width 13.2 % (9.3-17.3); White Blood Count 14.3 T/CUMM (4-12)
[2019-02-24] MEDS: PANTOPRAZOLE 40 MG TABLET PO SCH (10:28)
[2019-02-25] MEDS: HYDROmorphone 2 MG/1 ML VIAL IV PRN ×10 (04:02→23:31)
[2019-02-25] MEDS: PIPERACILLIN/TAZOBACTAM 3,375 MG in SODIUM CHLORIDE 0.9% 100 ML IV SCH ×3 (06:33→22:38)
[2019-02-25] MEDS: PANTOPRAZOLE 40 MG TABLET PO SCH (08:30)
[2019-02-25] MEDS: LACTATED RINGERS 1,000 ML IV SCH ×3 (09:44→16:32)
[2019-02-25] MEDS ORDERED: ONDANSETRON 4 MG/2 ML VIAL IV PRN (13:32)
[2019-02-25] MEDS ORDERED: HYDROmorphone 2 MG/1 ML VIAL ONE (13:38)
[2019-02-25] MEDS ORDERED: ONDANSETRON 4 MG/2 ML VIAL ONE (13:38)
[2019-02-25] MEDS ORDERED: PROPOFOL 200 MG/20 ML VIAL IV ONE (13:43)
[2019-02-25] MEDS ORDERED: DESFLURANE 1 UNIT/15 MINUTE INH ONE (13:44)
[2019-02-25] MEDS ORDERED: LIDOCAINE 2% 5 ML VIAL ONE (13:44)
[2019-02-25] MEDS ORDERED: SUCCINYLCHOLINE 200 MG/10 ML VIAL ONE (13:44)
[2019-02-25] MEDS ORDERED: fentaNYL 100 MCG/2 ML VIAL ONE (13:44)
[2019-02-25] MEDS ORDERED: METOPROLOL TARTRATE 5 MG/5 ML VIAL IV ONE (13:44)
[2019-02-25] MEDS ORDERED: MIDAZOLAM 2 MG/2 ML VIAL ONE (13:44)
[2019-02-25] MEDS ORDERED: GLYCOPYRROLATE 0.4 MG/2 ML VIAL ONE (13:44)
[2019-02-25] MEDS ORDERED: NEOSTIGMINE 10 MG/10 ML VIAL ONE (13:45)
[2019-02-25] MEDS ORDERED: LACTATED RINGERS 1,000 ML IV ONE (13:45)
[2019-02-25] MEDS ORDERED: ROCURONIUM 100 MG/10 ML VIAL IV ONE (13:45)
[2019-02-25 13:51] LABS: Apearance,Urine Slightly Hazy (Clear); Bacteria,Urine Occasional /HPF (Few); Bilirubin,Urine Negative (Negative); Blood, Urine Large mg/dL (Negative); Glucose,Urine (UA) Negative (Negative); Ketones,Urine Negative (Negative); Mucus,Urine Occasional /LPF (Occasional); Nitrite,Urine Negative (Negative); Protein,Urine Negative; RBC,Urine 144 /HPF (0-4); Squamous Epithelial Cell,Urine Occasional /HPF (0-10); Urine Color Yellow (Yellow); Urine Specific Gravity 1.009 (1.001-1.035); Urine Urobilinogen < 2.0 EU/DL (0.2-1.0); WBC,Urine 10 /HPF (0-6)
[2019-02-25] MEDS ORDERED: hydrALAZINE 20 MG/1 ML VIAL ONE (14:07)
[2019-02-25] MEDS: hydrALAZINE 20 MG/1 ML VIAL IV PRN (14:10)
[2019-02-25 15:19] LABS: Hematocrit 47.6 VOL% (42.0-52.0); Hemoglobin 16.5 GM/DL (14.0-18.0)
[2019-02-25 21:58] LABS: Hematocrit 46.9 VOL% (42.0-52.0); Hemoglobin 16.5 GM/DL (14.0-18.0)
[2019-02-26] MEDS: HYDROmorphone 2 MG/1 ML VIAL IV PRN ×9 (01:29→21:58)
[2019-02-26 05:29] LABS: Basophils # 0.1 10*3/uL (0.0-0.2); Basophils % 0.6 % (0.0-0.8); Eosinophils % 0.1 % (0.00-10.9); Hematocrit 46.8 VOL% (42.0-52.0); Hemoglobin 16.2 GM/DL (14.0-18.0); Immature Granulocytes % 0.9 %; Immature Granulocytes Absolute 0.16 #; Lymphocytes # 2.6 10*3/uL (1.4-4.0); Lymphocytes % 13.7 % (21.2-54.2); Mean Corpuscular HGB Conc 34.6 GM/DL (32-36); Mean Corpuscular Volume 84.8 FL (87-102); Mean Platelet Volume 9.4 FL (9.6-12.0); Monocytes % 6.3 % (1.7-12.7); Neutrophils % 78.4 % (38.7-73.9); Platelet Count 358 T/CUMM (130-400); Red Blood Count 5.52 MC/CUMM (3.8-5.5); Red Cell Distribution Width 13.2 % (9.3-17.3); White Blood Count 18.8 T/CUMM (4-12)
[2019-02-26 05:49] LABS: Calcium 8.4 MG/DL (8.5-10.1); Osmolality,Calculated 285.8 MOS/KG (273-304)
[2019-02-26 06:23] LABS: Band Neutrophils 3 % (0-10); Hypochromasia Slight; Lymphocytes 10 % (20-55); Microcytosis Slight; Segmented Neutrophils 85 % (50-85); Total Cells Counted 100
[2019-02-26 06:24] LABS: Platelet Estimate Normal
[2019-02-26] MEDS: PIPERACILLIN/TAZOBACTAM 3,375 MG in SODIUM CHLORIDE 0.9% 100 ML IV SCH ×3 (06:34→21:48)
[2019-02-26] MEDS: PANTOPRAZOLE 40 MG TABLET PO SCH (09:13)
[2019-02-26] MEDS: LACTATED RINGERS 1,000 ML IV SCH ×2 (11:43→12:49)
[2019-02-27] MEDS: HYDROmorphone 2 MG/1 ML VIAL IV PRN ×10 (00:13→22:58)
[2019-02-27] MEDS: LACTATED RINGERS 1,000 ML IV SCH ×4 (02:51→20:28)
[2019-02-27] MEDS: PIPERACILLIN/TAZOBACTAM 3,375 MG in SODIUM CHLORIDE 0.9% 100 ML IV SCH ×3 (06:46→22:58)
[2019-02-27] MEDS: PANTOPRAZOLE 40 MG TABLET PO SCH (09:41)
[2019-02-28] MEDS: LACTATED RINGERS 1,000 ML IV SCH ×2 (00:19→18:06)
[2019-02-28] MEDS: HYDROmorphone 2 MG/1 ML VIAL IV PRN ×8 (02:14→23:12)
[2019-02-28 07:06] LABS: Basophils # 0.1 10*3/uL (0.0-0.2); Basophils % 0.7 % (0.0-0.8); Eosinophils # 0.4 10*3/uL (0.0-0.87); Eosinophils % 2.9 % (0.00-10.9); Hematocrit 42.3 VOL% (42.0-52.0); Hemoglobin 14.6 GM/DL (14.0-18.0); Immature Granulocytes % 1.4 %; Immature Granulocytes Absolute 0.18 #; Lymphocytes # 2.1 10*3/uL (1.4-4.0); Lymphocytes % 16.1 % (21.2-54.2); Mean Corpuscular HGB Conc 34.5 GM/DL (32-36); Mean Corpuscular Volume 84.8 FL (87-102); Mean Platelet Volume 10.2 FL (9.6-12.0); Monocytes % 7.4 % (1.7-12.7); Neutrophils % 71.5 % (38.7-73.9); Platelet Count 418 T/CUMM (130-400); Red Blood Count 4.99 MC/CUMM (3.8-5.5); Red Cell Distribution Width 13.2 % (9.3-17.3); White Blood Count 13.3 T/CUMM (4-12)
[2019-02-28] MEDS: PANTOPRAZOLE 40 MG TABLET PO SCH (08:18)
[2019-03-01] MEDS: LACTATED RINGERS 1,000 ML IV SCH ×5 (02:03→23:49)
[2019-03-01] MEDS: HYDROmorphone 2 MG/1 ML VIAL IV PRN ×10 (02:04→23:37)
[2019-03-01] MEDS: PANTOPRAZOLE 40 MG TABLET PO SCH (08:20)
[2019-03-02] MEDS: HYDROmorphone 2 MG/1 ML VIAL IV PRN ×2 (02:39→05:45)
[2019-03-02 05:58] LABS: Basophils # 0.1 10*3/uL (0.0-0.2); Basophils % 0.6 % (0.0-0.8); Eosinophils # 0.4 10*3/uL (0.0-0.87); Hematocrit 43.5 VOL% (42.0-52.0); Immature Granulocytes Absolute 0.15 #; Lymphocytes % 13.8 % (21.2-54.2); Mean Corpuscular HGB Conc 34.5 GM/DL (32-36); Mean Platelet Volume 9.9 FL (9.6-12.0); Monocytes % 5.7 % (1.7-12.7); Neutrophils % 75.9 % (38.7-73.9); Platelet Count 431 T/CUMM (130-400); Red Blood Count 5.12 MC/CUMM (3.8-5.5); White Blood Count 14.5 T/CUMM (4-12)
[2019-03-02 06:14] LABS: Calcium 8.7 MG/DL (8.5-10.1); Osmolality,Calculated 277.4 MOS/KG (273-304)
[2019-03-02 06:23] LABS: Hypochromasia 1+; Microcytosis Slight
[2019-03-02 06:24] LABS: Platelet Estimate Increased
[2019-03-02] MEDS: PANTOPRAZOLE 40 MG TABLET PO SCH (08:51)
[2019-03-02] MEDS: LACTATED RINGERS 1,000 ML IV SCH (08:53)
[2019-03-02] MEDS: oxyCODONE/ACETAMINOPHEN 5-325 MG TABLET PO PRN ×3 (12:56→20:45)
[2019-03-02] MEDS: cefOXitin 1,000 MG in SYRINGE 1 EACH IV SCH ×3 (14:12→20:52)
[2019-03-02] MEDS: TRIAMCINOLONE 0.1% CREAM 15 GM TUBE TOP SCH ×2 (16:36→21:00)
[2019-03-02] MEDS: hydrALAZINE 20 MG/1 ML VIAL IV PRN (20:46)
[2019-03-02] MEDS: POTASSIUM CHLORIDE RIDER 10 MEQ in PREMIX 1 EACH IV PRN ×2 (21:00→22:00)
[2019-03-03] MEDS: oxyCODONE/ACETAMINOPHEN 5-325 MG TABLET PO PRN ×6 (00:37→21:32)
[2019-03-03] MEDS: cefOXitin 1,000 MG in SYRINGE 1 EACH IV SCH ×4 (05:08→21:32)
[2019-03-03 06:20] LABS: Basophils # 0.1 10*3/uL (0.0-0.2); Basophils % 0.5 % (0.0-0.8); Eosinophils # 0.3 10*3/uL (0.0-0.87); Eosinophils % 2.2 % (0.00-10.9); Hematocrit 42.2 VOL% (42.0-52.0); Hemoglobin 14.4 GM/DL (14.0-18.0); Immature Granulocytes % 0.8 %; Immature Granulocytes Absolute 0.12 #; Lymphocytes # 2.5 10*3/uL (1.4-4.0); Lymphocytes % 16.3 % (21.2-54.2); Mean Corpuscular HGB Conc 34.1 GM/DL (32-36); Mean Corpuscular Volume 86.1 FL (87-102); Mean Platelet Volume 9.7 FL (9.6-12.0); Monocytes % 5.8 % (1.7-12.7); Neutrophils % 74.4 % (38.7-73.9); Platelet Count 529 T/CUMM (130-400); White Blood Count 15.2 T/CUMM (4-12)
[2019-03-03] MEDS: TRIAMCINOLONE 0.1% CREAM 15 GM TUBE TOP SCH ×2 (09:07→21:33)
[2019-03-03] MEDS: PANTOPRAZOLE 40 MG TABLET PO SCH (09:07)
[2019-03-04] MEDS: oxyCODONE/ACETAMINOPHEN 5-325 MG TABLET PO PRN ×6 (01:43→21:57)
[2019-03-04] MEDS: cefOXitin 1,000 MG in SYRINGE 1 EACH IV SCH ×4 (02:23→21:02)
[2019-03-04] MEDS: PANTOPRAZOLE 40 MG TABLET PO SCH (09:58)
[2019-03-04] MEDS: TRIAMCINOLONE 0.1% CREAM 15 GM TUBE TOP SCH ×2 (09:58→21:02)
[2019-03-04 13:31] LABS: Apearance,Urine CLEAR (Clear); Bilirubin,Urine Negative (Negative); Blood, Urine Negative (Negative); Glucose,Urine (UA) Negative (Negative); Ketones,Urine 80 mg/dL (Negative); Mucus,Urine Occasional /LPF (Occasional); Nitrite,Urine Negative (Negative); Protein,Urine Negative; Urine Color Yellow (Yellow); Urine Specific Gravity 1.014 (1.001-1.035); Urine Urobilinogen < 2.0 EU/DL (0.2-1.0); WBC,Urine 1 /HPF (0-6)
[2019-03-04] MEDS: METOPROLOL SUCCINATE XL 25 MG TABLET PO SCH (14:05)
[2019-03-04] MEDS ORDERED: SODIUM HYPOCHLORITE 0.25% IRRIG 473 ML BOTTLE TOP SCH (14:27)
[2019-03-04] MEDS: SODIUM HYPOCHLORITE 0.25% IRRIG 473 ML BOTTLE TOP SCH (15:37)
[2019-03-05] MEDS: cefOXitin 1,000 MG in SYRINGE 1 EACH IV SCH ×4 (02:07→20:39)
[2019-03-05] MEDS: oxyCODONE/ACETAMINOPHEN 5-325 MG TABLET PO PRN ×5 (02:08→20:33)
[2019-03-05 05:37] LABS: Basophils # 0.1 10*3/uL (0.0-0.2); Basophils % 0.7 % (0.0-0.8); Eosinophils # 0.4 10*3/uL (0.0-0.87); Eosinophils % 2.9 % (0.00-10.9); Hematocrit 43.9 VOL% (42.0-52.0); Immature Granulocytes % 0.6 %; Immature Granulocytes Absolute 0.08 #; Lymphocytes # 2.4 10*3/uL (1.4-4.0); Lymphocytes % 17.9 % (21.2-54.2); Mean Corpuscular HGB Conc 34.2 GM/DL (32-36); Mean Corpuscular Volume 86.1 FL (87-102); Mean Platelet Volume 9.2 FL (9.6-12.0); Monocytes % 6.8 % (1.7-12.7); Neutrophils % 71.1 % (38.7-73.9); Platelet Count 554 T/CUMM (130-400); Red Cell Distribution Width 12.8 % (9.3-17.3); White Blood Count 13.6 T/CUMM (4-12)
[2019-03-05] MEDS: PANTOPRAZOLE 40 MG TABLET PO SCH (10:24)
[2019-03-05] MEDS: METOPROLOL SUCCINATE XL 25 MG TABLET PO SCH (10:24)
[2019-03-05] MEDS: SODIUM HYPOCHLORITE 0.25% IRRIG 473 ML BOTTLE TOP SCH (10:24)
[2019-03-05] MEDS: TRIAMCINOLONE 0.1% CREAM 15 GM TUBE TOP SCH ×2 (10:24→20:34)
[2019-03-06] MEDS: oxyCODONE/ACETAMINOPHEN 5-325 MG TABLET PO PRN ×3 (00:33→09:51)
[2019-03-06] MEDS: cefOXitin 1,000 MG in SYRINGE 1 EACH IV SCH ×2 (02:07→09:48)
[2019-03-06 09:40] LABS: Basophils # 0.1 10*3/uL (0.0-0.2); Basophils % 1.1 % (0.0-0.8); Eosinophils # 0.5 10*3/uL (0.0-0.87); Eosinophils % 3.5 % (0.00-10.9); Hematocrit 47.5 VOL% (42.0-52.0); Immature Granulocytes % 0.5 %; Immature Granulocytes Absolute 0.06 #; Lymphocytes % 23.3 % (21.2-54.2); Mean Corpuscular HGB Conc 33.7 GM/DL (32-36); Mean Corpuscular Volume 85.4 FL (87-102); Mean Platelet Volume 9.7 FL (9.6-12.0); Monocytes % 7.4 % (1.7-12.7); Neutrophils % 64.2 % (38.7-73.9); Platelet Count 602 T/CUMM (130-400); Red Blood Count 5.56 MC/CUMM (3.8-5.5)
[2019-03-06] MEDS: TRIAMCINOLONE 0.1% CREAM 15 GM TUBE TOP SCH (09:48)
[2019-03-06] MEDS: SODIUM HYPOCHLORITE 0.25% IRRIG 473 ML BOTTLE TOP SCH (09:48)
[2019-03-06] MEDS: METOPROLOL SUCCINATE XL 25 MG TABLET PO SCH (09:49)
[2019-03-06] MEDS: PANTOPRAZOLE 40 MG TABLET PO SCH (09:49)
[2019-03-06] MEDS ORDERED: METOPROLOL SUCCINATE XL 25 MG TABLET PO ONE (11:00)
[2019-03-06 11:50] VITALS: BP 154/89
[2019-03-07] MEDS ORDERED: METOPROLOL SUCCINATE XL 50 MG TABLET PO SCH (09:00)
== END 2019-03-06 14:46 | disposition home health service (06) | DRG 329 ==
LOC: N.ED 07:32 → N.EDINP 09:56 → N.5E 13:10
PROVIDERS: ADMIT Surgery; ATTEND Surgery

== ENCOUNTER 2019-04-26 12:28 | Inpatient (IN) ==
[2019-04-26] MEDS ORDERED: ONDANSETRON 4 MG/2 ML VIAL IV PRN (15:16)
[2019-04-26 15:33] LABS: Basophils # 0.1 10*3/uL (0.0-0.2); Basophils % 0.8 % (0.0-0.8); Eosinophils # 0.1 10*3/uL (0.0-0.87); Eosinophils % 1.4 % (0.00-10.9); Hematocrit 48.4 VOL% (42.0-52.0); Hemoglobin 16.6 GM/DL (14.0-18.0); Immature Granulocytes % 0.4 %; Immature Granulocytes Absolute 0.03 #; Lymphocytes # 2.8 10*3/uL (1.4-4.0); Lymphocytes % 36.1 % (21.2-54.2); Mean Corpuscular HGB Conc 34.3 GM/DL (32-36); Mean Corpuscular Volume 86.1 FL (87-102); Mean Platelet Volume 8.9 FL (9.6-12.0); Monocytes % 6.7 % (1.7-12.7); Neutrophils % 54.6 % (38.7-73.9); Platelet Count 341 T/CUMM (130-400); Red Blood Count 5.62 MC/CUMM (3.8-5.5); Red Cell Distribution Width 16.9 % (9.3-17.3); White Blood Count 7.6 T/CUMM (4-12)
[2019-04-26 15:52] LABS: Calcium 8.9 MG/DL (8.5-10.1); Osmolality,Calculated 274.5 MOS/KG (273-304)
[2019-04-26] MEDS: METOPROLOL SUCCINATE XL 50 MG TABLET PO SCH (20:19)
[2019-04-27 06:01] LABS: INR 0.9; PT Patient Result 10.1 SECS (9.6-12.2)
[2019-04-27] MEDS ORDERED: cefOXitin 2,000 MG in SYRINGE 1 EACH IV ONE (08:28)
[2019-04-27] MEDS: METOPROLOL SUCCINATE XL 50 MG TABLET PO SCH ×2 (08:35→20:44)
[2019-04-27] MEDS: PANTOPRAZOLE 40 MG TABLET PO SCH (08:35)
[2019-04-27] MEDS ORDERED: LACTATED RINGERS 1,000 ML IV SCH (14:00)
[2019-04-27] MEDS ORDERED: BUPIVACAINE MPF 0.25% 30 ML VIAL ONE (14:29)
[2019-04-27] MEDS ORDERED: LIDOCAINE 1%/EPI INJ 20 ML VIAL ONE (14:29)
[2019-04-27] MEDS ORDERED: LIDOCAINE 2% 5 ML VIAL ONE (14:55)
[2019-04-27] MEDS ORDERED: propofoL 200 MG/20 ML VIAL IV ONE (14:55)
[2019-04-27] MEDS ORDERED: KETAMINE 500 MG/10 ML VIAL ONE (14:55)
[2019-04-27] MEDS ORDERED: ONDANSETRON 4 MG/2 ML VIAL ONE (14:56)
[2019-04-27] MEDS ORDERED: SODIUM CHLORIDE 0.9% 200 ML IV ONE (14:56)
[2019-04-27] MEDS ORDERED: HYDROmorphone 2 MG/1 ML VIAL ONE (14:56)
[2019-04-27] MEDS ORDERED: fentaNYL 100 MCG/2 ML VIAL ONE (14:56)
[2019-04-27] MEDS ORDERED: MIDAZOLAM 2 MG/2 ML VIAL ONE (14:56)
[2019-04-27] MEDS ORDERED: ONDANSETRON 4 MG/2 ML VIAL IV PRN (15:10)
[2019-04-27] MEDS ORDERED: HYDROmorphone 2 MG/1 ML VIAL IV PRN (15:10)
[2019-04-27] MEDS: ACETAMINOPHEN 325 MG TABLET PO PRN ×2 (18:06→23:18)
[2019-04-27] MEDS: MORPHINE 4 MG/1 ML VIAL IV PRN (20:44)
[2019-04-28] MEDS: ACETAMINOPHEN 325 MG TABLET PO PRN (05:57)
[2019-04-28] MEDS: MORPHINE 4 MG/1 ML VIAL IV PRN (06:38)
[2019-04-28 06:59] VITALS: BP 154/81
[2019-04-28] MEDS: PANTOPRAZOLE 40 MG TABLET PO SCH (09:06)
[2019-04-28] MEDS: METOPROLOL SUCCINATE XL 50 MG TABLET PO SCH (09:07)
== END 2019-04-28 11:20 | disposition home or self-care (01) | DRG 349 ==
LOC: N.ED 12:28 → N.EDINP 15:16 → N.3E 16:23
PROVIDERS: ADMIT Surgery; ATTEND Surgery

== ENCOUNTER 2019-05-11 07:01 | Inpatient (IN) ==
[2019-05-11] MEDS ORDERED: ACETAMINOPHEN 325 MG TABLET PO PRN (08:40)
[2019-05-11] MEDS ORDERED: ONDANSETRON 4 MG/2 ML VIAL IV PRN (08:40)
[2019-05-11] MEDS ORDERED: ALBUTEROL/IPRATROPIUM 3 ML NEB RESP TX PRN (08:40)
[2019-05-11] MEDS ORDERED: LORazepam 2 MG/1 ML VIAL IV PRN (08:43)
[2019-05-11] MEDS ORDERED: LACTATED RINGERS 1,000 ML IV SCH (09:00)
[2019-05-11] MEDS ORDERED: BISACODYL 5 MG TABLET PO ONE (10:00)
[2019-05-11] MEDS: PANTOPRAZOLE 40 MG TABLET PO SCH (11:05)
[2019-05-11] MEDS: MULTIVITAMIN (CENTRUM) TABLET PO SCH (11:05)
[2019-05-11] MEDS: FOLIC ACID 1 MG TABLET PO SCH (11:05)
[2019-05-11] MEDS: THIAMINE 100 MG TABLET PO SCH (11:05)
[2019-05-11] MEDS: SODIUM CHLORIDE 0.9% 1,000 ML IV SCH (11:07)
[2019-05-11] MEDS: KETOROLAC 10 MG TABLET PO PRN (14:23)
[2019-05-12] MEDS: SODIUM CHLORIDE 0.9% 1,000 ML IV SCH ×3 (00:30→17:49)
[2019-05-12] MEDS: HYDROmorphone 2 MG/1 ML VIAL IV PRN ×4 (05:08→23:51)
[2019-05-12] MEDS: MULTIVITAMIN (CENTRUM) TABLET PO SCH (08:54)
[2019-05-12] MEDS: FOLIC ACID 1 MG TABLET PO SCH (08:54)
[2019-05-12] MEDS: THIAMINE 100 MG TABLET PO SCH (08:54)
[2019-05-12] MEDS: PANTOPRAZOLE 40 MG TABLET PO SCH (08:54)
[2019-05-12] MEDS ORDERED: POLYETHYLENE GLYCOL POWDER 255 GM BOTTLE PO ONE ×2 (09:00→20:00)
[2019-05-13] MEDS: SODIUM CHLORIDE 0.9% 1,000 ML IV SCH ×3 (01:10→23:19)
[2019-05-13] MEDS: HYDROmorphone 2 MG/1 ML VIAL IV PRN ×7 (04:47→22:45)
[2019-05-13 06:23] LABS: Basophils # 0.1 10*3/uL (0.0-0.2); Eosinophils # 0.2 10*3/uL (0.0-0.87); Eosinophils % 2.4 % (0.00-10.9); Hematocrit 45.7 VOL% (42.0-52.0); Hemoglobin 15.1 GM/DL (14.0-18.0); Immature Granulocytes % 0.3 %; Immature Granulocytes Absolute 0.02 #; Lymphocytes # 2.9 10*3/uL (1.4-4.0); Lymphocytes % 41.2 % (21.2-54.2); Mean Corpuscular Volume 86.9 FL (87-102); Mean Platelet Volume 9.3 FL (9.6-12.0); Monocytes % 8.1 % (1.7-12.7); Platelet Count 377 T/CUMM (130-400); Red Blood Count 5.26 MC/CUMM (3.8-5.5); Red Cell Distribution Width 15.9 % (9.3-17.3)
[2019-05-13 06:41] LABS: Albumin 3.2 G/DL (3.4-5.0); Bilirubin,Total 0.8 MG/DL (0.2-1.0); Calcium 8.6 MG/DL (8.5-10.1); Osmolality,Calculated 269.8 MOS/KG (273-304); Total Protein 7.3 G/DL (6.4-8.3)
[2019-05-13] MEDS ORDERED: LIDOCAINE 1%/EPI INJ 20 ML VIAL ONE (09:38)
[2019-05-13] MEDS ORDERED: BUPIVACAINE MPF 0.25% 30 ML VIAL ONE ×2 (09:38→09:53)
[2019-05-13] MEDS ORDERED: DEXAMETHASONE 4 MG/1 ML VIAL ONE (09:53)
[2019-05-13] MEDS ORDERED: EPINEPHrine 1 MG/ML VIAL ONE (09:53)
[2019-05-13] MEDS: FOLIC ACID 1 MG TABLET PO SCH (11:38)
[2019-05-13] MEDS: PANTOPRAZOLE 40 MG TABLET PO SCH (11:38)
[2019-05-13] MEDS: MULTIVITAMIN (CENTRUM) TABLET PO SCH (11:38)
[2019-05-13] MEDS: THIAMINE 100 MG TABLET PO SCH (11:38)
[2019-05-13] MEDS ORDERED: ONDANSETRON 4 MG/2 ML VIAL ONE ×2 (14:46→14:57)
[2019-05-13] MEDS ORDERED: HYDROmorphone 2 MG/1 ML VIAL ONE (14:46)
[2019-05-13] MEDS ORDERED: ONDANSETRON 4 MG/2 ML VIAL IV PRN (14:49)
[2019-05-13] MEDS ORDERED: LIDOCAINE 2% 5 ML VIAL ONE (14:55)
[2019-05-13] MEDS ORDERED: SEVOFLURANE 1 UNIT/15 MINUTE INH ONE (14:55)
[2019-05-13] MEDS ORDERED: propofoL 200 MG/20 ML VIAL IV ONE (14:55)
[2019-05-13] MEDS ORDERED: MIDAZOLAM 2 MG/2 ML VIAL ONE (14:56)
[2019-05-13] MEDS ORDERED: KETAMINE 500 MG/10 ML VIAL ONE (14:56)
[2019-05-13] MEDS ORDERED: fentaNYL 100 MCG/2 ML VIAL ONE ×2 (14:56)
[2019-05-13] MEDS ORDERED: PHENYLEPHRINE 1 MG/10 ML SYRINGE IV ONE (14:57)
[2019-05-13] MEDS ORDERED: GLYCOPYRROLATE 0.4 MG/2 ML VIAL ONE (14:57)
[2019-05-13] MEDS ORDERED: NEOSTIGMINE 10 MG/10 ML VIAL ONE (14:57)
[2019-05-13] MEDS ORDERED: ROCURONIUM 100 MG/10 ML VIAL IV ONE (14:57)
[2019-05-13] MEDS ORDERED: SUCCINYLCHOLINE 200 MG/10 ML VIAL ONE (14:57)
[2019-05-13] MEDS ORDERED: LACTATED RINGERS 2,000 ML IV ONE (14:57)
[2019-05-13 15:00] LABS: Apearance,Urine CLEAR (Clear); Bilirubin,Urine Negative (Negative); Blood, Urine Small mg/dL (Negative); Glucose,Urine (UA) Negative (Negative); Ketones,Urine 5 mg/dL (Negative); Mucus,Urine Occasional /LPF (Occasional); Nitrite,Urine Negative (Negative); Protein,Urine Negative; RBC,Urine 7 /HPF (0-4); Urine Color Yellow (Yellow); Urine Urobilinogen < 2.0 EU/DL (0.2-1.0); WBC,Urine 1 /HPF (0-6)
[2019-05-13] MEDS ORDERED: MEPERIDINE 25 MG/1 ML VIAL IV PRN (15:31)
[2019-05-13 16:44] LABS: Hematocrit 48.5 VOL% (42.0-52.0); Hemoglobin 16.2 GM/DL (14.0-18.0)
[2019-05-13] MEDS: DEXTROSE 5% LACTATED RINGERS 1,000 ML IV SCH ×2 (18:22→22:49)
[2019-05-13] MEDS: cefOXitin 2,000 MG in SYRINGE 1 EACH IV SCH (18:23)
[2019-05-13 22:55] LABS: Hematocrit 49.1 VOL% (42.0-52.0); Hemoglobin 16.4 GM/DL (14.0-18.0)
[2019-05-14] MEDS: cefOXitin 2,000 MG in SYRINGE 1 EACH IV SCH ×2 (02:00→07:45)
[2019-05-14] MEDS: HYDROmorphone 2 MG/1 ML VIAL IV PRN ×5 (03:49→20:27)
[2019-05-14 04:53] LABS: Basophils % 0.2 % (0.0-0.8); Hematocrit 45.6 VOL% (42.0-52.0); Hemoglobin 15.2 GM/DL (14.0-18.0); Immature Granulocytes % 0.6 %; Immature Granulocytes Absolute 0.08 #; Lymphocytes # 2.1 10*3/uL (1.4-4.0); Lymphocytes % 15.1 % (21.2-54.2); Mean Corpuscular HGB Conc 33.3 GM/DL (32-36); Mean Corpuscular Volume 87.5 FL (87-102); Mean Platelet Volume 9.3 FL (9.6-12.0); Monocytes % 9.8 % (1.7-12.7); Neutrophils % 74.3 % (38.7-73.9); Platelet Count 404 T/CUMM (130-400); Red Blood Count 5.21 MC/CUMM (3.8-5.5); Red Cell Distribution Width 15.8 % (9.3-17.3)
[2019-05-14 05:10] LABS: Calcium 8.5 MG/DL (8.5-10.1); Osmolality,Calculated 274.8 MOS/KG (273-304)
[2019-05-14] MEDS: DEXTROSE 5% LACTATED RINGERS 1,000 ML IV SCH ×2 (06:56→14:23)
[2019-05-14] MEDS: SODIUM CHLORIDE 0.9% 1,000 ML IV SCH (07:17)
[2019-05-14] MEDS: MULTIVITAMIN (CENTRUM) TABLET PO SCH (09:07)
[2019-05-14] MEDS: THIAMINE 100 MG TABLET PO SCH (09:07)
[2019-05-14] MEDS: PANTOPRAZOLE 40 MG TABLET PO SCH (09:07)
[2019-05-14] MEDS: FOLIC ACID 1 MG TABLET PO SCH (09:07)
[2019-05-14 10:00] LABS: Troponin I < 0.015 NG/ML (0.00-0.045)
[2019-05-14] MEDS ORDERED: SILVER NITRATE STICK 1 EACH TOP ONE (13:19)
[2019-05-14] MEDS: ZINC OXIDE PASTE 113 GM TUBE TOP SCH (14:21)
[2019-05-14] MEDS: KETOROLAC 10 MG TABLET PO PRN (14:22)
[2019-05-14] MEDS ORDERED: LACTATED RINGERS 500 ML IV ONE (15:00)
[2019-05-14] MEDS: LACTATED RINGERS 1,000 ML IV SCH (18:22)
[2019-05-15] MEDS: HYDROmorphone 2 MG/1 ML VIAL IV PRN ×6 (00:01→21:27)
[2019-05-15] MEDS: LACTATED RINGERS 1,000 ML IV SCH ×2 (00:03→06:32)
[2019-05-15 05:29] LABS: Basophils # 0.1 10*3/uL (0.0-0.2); Basophils % 0.6 % (0.0-0.8); Eosinophils # 0.2 10*3/uL (0.0-0.87); Eosinophils % 1.2 % (0.00-10.9); Hematocrit 35.5 VOL% (42.0-52.0); Hemoglobin 11.9 GM/DL (14.0-18.0); Immature Granulocytes % 0.4 %; Immature Granulocytes Absolute 0.05 #; Lymphocytes % 16.2 % (21.2-54.2); Mean Corpuscular HGB Conc 33.5 GM/DL (32-36); Mean Corpuscular Volume 86.6 FL (87-102); Mean Platelet Volume 10.1 FL (9.6-12.0); Monocytes % 10.7 % (1.7-12.7); Neutrophils % 70.9 % (38.7-73.9); Platelet Count 317 T/CUMM (130-400); Red Cell Distribution Width 15.9 % (9.3-17.3); White Blood Count 12.1 T/CUMM (4-12)
[2019-05-15 05:40] LABS: Calcium 8.5 MG/DL (8.5-10.1); Osmolality,Calculated 272.8 MOS/KG (273-304)
[2019-05-15] MEDS: ZINC OXIDE PASTE 113 GM TUBE TOP SCH (09:11)
[2019-05-15] MEDS ORDERED: MORPHINE 4 MG/1 ML VIAL IV ONE (09:39)
[2019-05-15] MEDS: KETOROLAC 15 MG/1 ML VIAL IV PRN (09:52)
[2019-05-15] MEDS: PANTOPRAZOLE 40 MG TABLET PO SCH (09:59)
[2019-05-15] MEDS: MULTIVITAMIN (CENTRUM) TABLET PO SCH (09:59)
[2019-05-15] MEDS: FOLIC ACID 1 MG TABLET PO SCH (09:59)
[2019-05-15] MEDS: THIAMINE 100 MG TABLET PO SCH (09:59)
[2019-05-15] MEDS: KETOROLAC 15 MG/1 ML VIAL IV SCH ×2 (14:22→20:10)
[2019-05-16] MEDS: HYDROmorphone 2 MG/1 ML VIAL IV PRN ×5 (00:51→22:02)
[2019-05-16] MEDS: KETOROLAC 15 MG/1 ML VIAL IV SCH ×4 (02:40→20:23)
[2019-05-16 06:13] LABS: Basophils # 0.1 10*3/uL (0.0-0.2); Basophils % 0.5 % (0.0-0.8); Eosinophils # 0.2 10*3/uL (0.0-0.87); Eosinophils % 2.3 % (0.00-10.9); Hematocrit 33.4 VOL% (42.0-52.0); Immature Granulocytes % 0.5 %; Immature Granulocytes Absolute 0.05 #; Lymphocytes # 1.8 10*3/uL (1.4-4.0); Mean Corpuscular HGB Conc 32.9 GM/DL (32-36); Mean Corpuscular Volume 88.4 FL (87-102); Mean Platelet Volume 9.8 FL (9.6-12.0); Monocytes % 9.1 % (1.7-12.7); Neutrophils % 70.6 % (38.7-73.9); Platelet Count 315 T/CUMM (130-400); Red Blood Count 3.78 MC/CUMM (3.8-5.5); Red Cell Distribution Width 15.3 % (9.3-17.3); White Blood Count 10.4 T/CUMM (4-12)
[2019-05-16 06:40] LABS: Albumin 2.5 G/DL (3.4-5.0); Bilirubin,Total 1.8 MG/DL (0.2-1.0); Calcium 8.6 MG/DL (8.5-10.1); Osmolality,Calculated 272.7 MOS/KG (273-304); Total Protein 6.2 G/DL (6.4-8.3)
[2019-05-16] MEDS: FOLIC ACID 1 MG TABLET PO SCH (08:04)
[2019-05-16] MEDS: PANTOPRAZOLE 40 MG TABLET PO SCH (08:04)
[2019-05-16] MEDS: ZINC OXIDE PASTE 113 GM TUBE TOP SCH (08:04)
[2019-05-16] MEDS: THIAMINE 100 MG TABLET PO SCH (08:04)
[2019-05-16] MEDS: MULTIVITAMIN (CENTRUM) TABLET PO SCH (08:04)
[2019-05-16] MEDS ORDERED: POTASSIUM CHLORIDE 20 MEQ TABLET PO ONE (12:33)
[2019-05-17] MEDS: HYDROmorphone 2 MG/1 ML VIAL IV PRN ×8 (00:41→23:23)
[2019-05-17] MEDS: KETOROLAC 15 MG/1 ML VIAL IV SCH ×4 (02:43→20:37)
[2019-05-17 05:35] LABS: Basophils # 0.1 10*3/uL (0.0-0.2); Basophils % 0.7 % (0.0-0.8); Eosinophils # 0.3 10*3/uL (0.0-0.87); Eosinophils % 3.9 % (0.00-10.9); Hematocrit 34.4 VOL% (42.0-52.0); Hemoglobin 11.2 GM/DL (14.0-18.0); Immature Granulocytes % 0.4 %; Immature Granulocytes Absolute 0.03 #; Lymphocytes # 1.4 10*3/uL (1.4-4.0); Mean Corpuscular HGB Conc 32.6 GM/DL (32-36); Mean Corpuscular Volume 88.2 FL (87-102); Mean Platelet Volume 9.7 FL (9.6-12.0); Monocytes % 10.4 % (1.7-12.7); Neutrophils % 65.6 % (38.7-73.9); Platelet Count 361 T/CUMM (130-400); Red Cell Distribution Width 15.3 % (9.3-17.3); White Blood Count 7.1 T/CUMM (4-12)
[2019-05-17 06:04] LABS: Albumin 2.5 G/DL (3.4-5.0); Bilirubin,Total 1.7 MG/DL (0.2-1.0); Calcium 8.7 MG/DL (8.5-10.1); Osmolality,Calculated 276.4 MOS/KG (273-304); Total Protein 6.7 G/DL (6.4-8.3)
[2019-05-17] MEDS: KETOROLAC 15 MG/1 ML VIAL IV PRN ×2 (10:23→20:32)
[2019-05-17] MEDS: THIAMINE 100 MG TABLET PO SCH (10:24)
[2019-05-17] MEDS: FOLIC ACID 1 MG TABLET PO SCH (10:24)
[2019-05-17] MEDS: PANTOPRAZOLE 40 MG TABLET PO SCH (10:24)
[2019-05-17] MEDS: MULTIVITAMIN (CENTRUM) TABLET PO SCH (10:24)
[2019-05-17] MEDS: ZINC OXIDE PASTE 113 GM TUBE TOP SCH (10:35)
[2019-05-18] MEDS: KETOROLAC 15 MG/1 ML VIAL IV SCH ×4 (01:32→20:15)
[2019-05-18] MEDS: HYDROmorphone 2 MG/1 ML VIAL IV PRN ×13 (01:33→23:25)
[2019-05-18] MEDS ORDERED: BUPIVACAINE MPF 0.25% 30 ML VIAL ONE (07:46)
[2019-05-18] MEDS ORDERED: LIDOCAINE 1%/EPI INJ 20 ML VIAL ONE (07:46)
[2019-05-18] MEDS ORDERED: LACTATED RINGERS 1,000 ML IV SCH (08:30)
[2019-05-18] MEDS ORDERED: HYDROmorphone 2 MG/1 ML VIAL ONE (09:16)
[2019-05-18] MEDS ORDERED: propofoL 200 MG/20 ML VIAL IV ONE (09:22)
[2019-05-18] MEDS ORDERED: MIDAZOLAM 2 MG/2 ML VIAL ONE (09:22)
[2019-05-18] MEDS ORDERED: LIDOCAINE 2% 5 ML VIAL ONE (09:22)
[2019-05-18] MEDS ORDERED: fentaNYL 100 MCG/2 ML VIAL ONE (09:23)
[2019-05-18] MEDS ORDERED: SODIUM CHLORIDE 0.9% 100 ML IV ONE (09:23)
[2019-05-18] MEDS: PANTOPRAZOLE 40 MG TABLET PO SCH (10:37)
[2019-05-18] MEDS: THIAMINE 100 MG TABLET PO SCH (10:37)
[2019-05-18] MEDS: MULTIVITAMIN (CENTRUM) TABLET PO SCH (10:38)
[2019-05-18] MEDS: FOLIC ACID 1 MG TABLET PO SCH (10:38)
[2019-05-18] MEDS: ZINC OXIDE PASTE 113 GM TUBE TOP SCH (10:52)
[2019-05-19] MEDS: KETOROLAC 15 MG/1 ML VIAL IV SCH ×5 (01:30→19:35)
[2019-05-19] MEDS: HYDROmorphone 2 MG/1 ML VIAL IV PRN ×7 (01:32→22:12)
[2019-05-19 07:20] LABS: Basophils # 0.1 10*3/uL (0.0-0.2); Basophils % 0.6 % (0.0-0.8); Eosinophils # 0.2 10*3/uL (0.0-0.87); Eosinophils % 1.9 % (0.00-10.9); Hematocrit 34.8 VOL% (42.0-52.0); Immature Granulocytes % 0.4 %; Immature Granulocytes Absolute 0.05 #; Lymphocytes # 2.2 10*3/uL (1.4-4.0); Lymphocytes % 19.8 % (21.2-54.2); Mean Corpuscular HGB Conc 34.5 GM/DL (32-36); Mean Corpuscular Volume 83.3 FL (87-102); Mean Platelet Volume 9.2 FL (9.6-12.0); Monocytes % 10.5 % (1.7-12.7); Neutrophils % 66.8 % (38.7-73.9); Platelet Count 374 T/CUMM (130-400); Red Blood Count 4.18 MC/CUMM (3.8-5.5); Red Cell Distribution Width 15.3 % (9.3-17.3); White Blood Count 11.2 T/CUMM (4-12)
[2019-05-19] MEDS: PIPERACILLIN/TAZOBACTAM 3,375 MG in SODIUM CHLORIDE 0.9% 100 ML IV SCH ×2 (08:24→16:47)
[2019-05-19] MEDS: SODIUM HYPOCHLORITE 0.25% IRRIG 473 ML BOTTLE TOP SCH (10:05)
[2019-05-19] MEDS: ZINC OXIDE PASTE 113 GM TUBE TOP SCH (10:05)
[2019-05-19] MEDS: FOLIC ACID 1 MG TABLET PO SCH (12:40)
[2019-05-19] MEDS: THIAMINE 100 MG TABLET PO SCH (12:40)
[2019-05-19] MEDS: MULTIVITAMIN (CENTRUM) TABLET PO SCH (12:40)
[2019-05-19] MEDS: PANTOPRAZOLE 40 MG TABLET PO SCH (12:40)
[2019-05-20] MEDS: PIPERACILLIN/TAZOBACTAM 3,375 MG in SODIUM CHLORIDE 0.9% 100 ML IV SCH ×3 (00:18→21:38)
[2019-05-20] MEDS: HYDROmorphone 2 MG/1 ML VIAL IV PRN ×11 (00:18→20:11)
[2019-05-20] MEDS: KETOROLAC 15 MG/1 ML VIAL IV SCH ×2 (01:54→08:01)
[2019-05-20 05:18] LABS: Basophils # 0.1 10*3/uL (0.0-0.2); Basophils % 0.4 % (0.0-0.8); Eosinophils # 0.3 10*3/uL (0.0-0.87); Eosinophils % 2.3 % (0.00-10.9); Hematocrit 33.6 VOL% (42.0-52.0); Hemoglobin 11.4 GM/DL (14.0-18.0); Immature Granulocytes % 0.4 %; Immature Granulocytes Absolute 0.05 #; Lymphocytes # 1.9 10*3/uL (1.4-4.0); Lymphocytes % 16.1 % (21.2-54.2); Mean Corpuscular HGB Conc 33.9 GM/DL (32-36); Mean Corpuscular Volume 83.6 FL (87-102); Mean Platelet Volume 9.4 FL (9.6-12.0); Monocytes % 12.7 % (1.7-12.7); Neutrophils % 68.1 % (38.7-73.9); Platelet Count 396 T/CUMM (130-400); Red Blood Count 4.02 MC/CUMM (3.8-5.5); Red Cell Distribution Width 15.6 % (9.3-17.3); White Blood Count 11.5 T/CUMM (4-12)
[2019-05-20 05:57] LABS: Albumin 2.2 G/DL (3.4-5.0); Bilirubin,Total 0.8 MG/DL (0.2-1.0); Calcium 8.8 MG/DL (8.5-10.1); Osmolality,Calculated 272.8 MOS/KG (273-304); Total Protein 6.7 G/DL (6.4-8.3)
[2019-05-20] MEDS ORDERED: LACTATED RINGERS 1,000 ML IV SCH (09:00)
[2019-05-20] MEDS ORDERED: HYDROmorphone 2 MG/1 ML VIAL ONE (10:35)
[2019-05-20] MEDS ORDERED: ONDANSETRON 4 MG/2 ML VIAL ONE ×2 (10:35→10:43)
[2019-05-20] MEDS ORDERED: ONDANSETRON 4 MG/2 ML VIAL IV PRN (10:35)
[2019-05-20] MEDS ORDERED: propofoL 200 MG/20 ML VIAL IV ONE (10:42)
[2019-05-20] MEDS ORDERED: SEVOFLURANE 1 UNIT/15 MINUTE INH ONE (10:43)
[2019-05-20] MEDS ORDERED: MIDAZOLAM 2 MG/2 ML VIAL ONE (10:43)
[2019-05-20] MEDS ORDERED: LIDOCAINE 2% 5 ML VIAL ONE (10:43)
[2019-05-20] MEDS ORDERED: fentaNYL 100 MCG/2 ML VIAL ONE (10:43)
[2019-05-20] MEDS ORDERED: NEOSTIGMINE 10 MG/10 ML VIAL ONE (10:44)
[2019-05-20] MEDS ORDERED: ROCURONIUM 100 MG/10 ML VIAL IV ONE (10:44)
[2019-05-20] MEDS ORDERED: GLYCOPYRROLATE 0.4 MG/2 ML VIAL ONE (10:44)
[2019-05-20] MEDS ORDERED: PHENYLEPHRINE 1 MG/10 ML SYRINGE IV ONE (10:44)
[2019-05-20] MEDS ORDERED: LACTATED RINGERS 1,000 ML IV ONE (10:44)
[2019-05-20] MEDS ORDERED: SUCCINYLCHOLINE 200 MG/10 ML VIAL ONE (10:44)
[2019-05-20] MEDS: SODIUM HYPOCHLORITE 0.25% IRRIG 473 ML BOTTLE TOP SCH (11:47)
[2019-05-20] MEDS: ZINC OXIDE PASTE 113 GM TUBE TOP SCH (11:48)
[2019-05-20] MEDS: THIAMINE 100 MG TABLET PO SCH (12:49)
[2019-05-20] MEDS: PANTOPRAZOLE 40 MG TABLET PO SCH (12:49)
[2019-05-20] MEDS: MULTIVITAMIN (CENTRUM) TABLET PO SCH (12:49)
[2019-05-20] MEDS: FOLIC ACID 1 MG TABLET PO SCH (12:49)
[2019-05-20] MEDS ORDERED: NALOXONE 0.4 MG/ML VIAL IV PRN (19:19)
[2019-05-20] MEDS ORDERED: HYDROmorphone PCA 30 MG/30 ML SYRINGE IV SCH (19:30)
[2019-05-20] MEDS: LACTATED RINGERS 1,000 ML IV SCH (20:20)
[2019-05-21] MEDS: ENOXAPARIN 40 MG/0.4 ML SYRINGE SUBCUT SCH (05:00)
[2019-05-21] MEDS: PIPERACILLIN/TAZOBACTAM 3,375 MG in SODIUM CHLORIDE 0.9% 100 ML IV SCH ×3 (05:01→21:14)
[2019-05-21 06:23] LABS: Basophils # 0.1 10*3/uL (0.0-0.2); Basophils % 0.4 % (0.0-0.8); Eosinophils # 0.1 10*3/uL (0.0-0.87); Eosinophils % 1.1 % (0.00-10.9); Hematocrit 37.4 VOL% (42.0-52.0); Hemoglobin 12.2 GM/DL (14.0-18.0); Immature Granulocytes % 0.4 %; Immature Granulocytes Absolute 0.05 #; Lymphocytes # 1.9 10*3/uL (1.4-4.0); Lymphocytes % 14.9 % (21.2-54.2); Mean Corpuscular HGB Conc 32.6 GM/DL (32-36); Mean Platelet Volume 9.5 FL (9.6-12.0); Monocytes % 11.3 % (1.7-12.7); Neutrophils % 71.9 % (38.7-73.9); Platelet Count 490 T/CUMM (130-400); Red Blood Count 4.35 MC/CUMM (3.8-5.5); Red Cell Distribution Width 15.9 % (9.3-17.3); White Blood Count 12.8 T/CUMM (4-12)
[2019-05-21 06:39] LABS: Bilirubin,Total 0.6 MG/DL (0.2-1.0); Calcium 8.7 MG/DL (8.5-10.1); Total Protein 6.9 G/DL (6.4-8.3)
[2019-05-21] MEDS: FOLIC ACID 1 MG TABLET PO SCH (09:12)
[2019-05-21] MEDS: PANTOPRAZOLE 40 MG TABLET PO SCH (09:12)
[2019-05-21] MEDS: MULTIVITAMIN (CENTRUM) TABLET PO SCH (09:12)
[2019-05-21] MEDS: THIAMINE 100 MG TABLET PO SCH (09:12)
[2019-05-21] MEDS: SODIUM HYPOCHLORITE 0.25% IRRIG 473 ML BOTTLE TOP SCH (11:00)
[2019-05-21] MEDS: ZINC OXIDE PASTE 113 GM TUBE TOP SCH (11:00)
[2019-05-21] MEDS ORDERED: KETOROLAC 15 MG/1 ML VIAL IM PRN (15:58)
[2019-05-21] MEDS: KETOROLAC 15 MG/1 ML VIAL IV PRN (16:49)
[2019-05-21] MEDS: HYDROmorphone 2 MG/1 ML VIAL IV PRN ×3 (17:52→23:16)
[2019-05-21] MEDS: LACTATED RINGERS 1,000 ML IV SCH (23:16)
[2019-05-22] MEDS: LACTATED RINGERS 1,000 ML IV SCH ×3 (00:30→17:06)
[2019-05-22] MEDS: HYDROmorphone 2 MG/1 ML VIAL IV PRN ×9 (01:59→21:55)
[2019-05-22] MEDS: ENOXAPARIN 40 MG/0.4 ML SYRINGE SUBCUT SCH (04:30)
[2019-05-22] MEDS: PIPERACILLIN/TAZOBACTAM 3,375 MG in SODIUM CHLORIDE 0.9% 100 ML IV SCH ×3 (04:45→21:23)
[2019-05-22] MEDS: MULTIVITAMIN (CENTRUM) TABLET PO SCH (09:26)
[2019-05-22] MEDS: PANTOPRAZOLE 40 MG TABLET PO SCH (09:27)
[2019-05-22] MEDS: THIAMINE 100 MG TABLET PO SCH (09:27)
[2019-05-22] MEDS: FOLIC ACID 1 MG TABLET PO SCH (09:27)
[2019-05-22] MEDS: ZINC OXIDE PASTE 113 GM TUBE TOP SCH (09:28)
[2019-05-22] MEDS: SODIUM HYPOCHLORITE 0.25% IRRIG 473 ML BOTTLE TOP SCH (09:28)
[2019-05-22] MEDS: KETOROLAC 15 MG/1 ML VIAL IV PRN (19:20)
[2019-05-23] MEDS: HYDROmorphone 2 MG/1 ML VIAL IV PRN ×9 (00:21→23:26)
[2019-05-23] MEDS: PIPERACILLIN/TAZOBACTAM 3,375 MG in SODIUM CHLORIDE 0.9% 100 ML IV SCH ×2 (04:31→15:21)
[2019-05-23] MEDS: ENOXAPARIN 40 MG/0.4 ML SYRINGE SUBCUT SCH (05:39)
[2019-05-23] MEDS: MULTIVITAMIN (CENTRUM) TABLET PO SCH (09:05)
[2019-05-23] MEDS: FOLIC ACID 1 MG TABLET PO SCH (09:05)
[2019-05-23] MEDS: PANTOPRAZOLE 40 MG TABLET PO SCH (09:06)
[2019-05-23] MEDS: THIAMINE 100 MG TABLET PO SCH (09:09)
[2019-05-23] MEDS: SODIUM HYPOCHLORITE 0.25% IRRIG 473 ML BOTTLE TOP SCH (09:11)
[2019-05-23] MEDS: ZINC OXIDE PASTE 113 GM TUBE TOP SCH (09:11)
[2019-05-23] MEDS: LACTATED RINGERS 1,000 ML IV SCH (15:21)
[2019-05-24] MEDS: PIPERACILLIN/TAZOBACTAM 3,375 MG in SODIUM CHLORIDE 0.9% 100 ML IV SCH ×4 (00:03→23:40)
[2019-05-24] MEDS: HYDROmorphone 2 MG/1 ML VIAL IV PRN ×6 (03:02→20:20)
[2019-05-24] MEDS: LACTATED RINGERS 1,000 ML IV SCH (05:02)
[2019-05-24] MEDS: ENOXAPARIN 40 MG/0.4 ML SYRINGE SUBCUT SCH (05:31)
[2019-05-24] MEDS: MULTIVITAMIN (CENTRUM) TABLET PO SCH (09:56)
[2019-05-24] MEDS: FOLIC ACID 1 MG TABLET PO SCH (09:56)
[2019-05-24] MEDS: THIAMINE 100 MG TABLET PO SCH (09:56)
[2019-05-24] MEDS: PANTOPRAZOLE 40 MG TABLET PO SCH (09:56)
[2019-05-24] MEDS: SODIUM HYPOCHLORITE 0.25% IRRIG 473 ML BOTTLE TOP SCH (09:57)
[2019-05-24] MEDS: ZINC OXIDE PASTE 113 GM TUBE TOP SCH (09:57)
[2019-05-25] MEDS: ENOXAPARIN 40 MG/0.4 ML SYRINGE SUBCUT SCH (04:30)
[2019-05-25 06:21] LABS: Basophils # 0.1 10*3/uL (0.0-0.2); Basophils % 0.7 % (0.0-0.8); Eosinophils # 0.4 10*3/uL (0.0-0.87); Eosinophils % 3.3 % (0.00-10.9); Hemoglobin 10.9 GM/DL (14.0-18.0); Immature Granulocytes % 0.8 %; Lymphocytes # 2.3 10*3/uL (1.4-4.0); Lymphocytes % 18.8 % (21.2-54.2); Mean Corpuscular Volume 85.1 FL (87-102); Monocytes % 7.7 % (1.7-12.7); Neutrophils % 68.7 % (38.7-73.9); Platelet Count 619 T/CUMM (130-400); Red Blood Count 3.88 MC/CUMM (3.8-5.5); Red Cell Distribution Width 15.9 % (9.3-17.3); White Blood Count 12.3 T/CUMM (4-12)
[2019-05-25 06:30] LABS: Calcium 8.5 MG/DL (8.5-10.1); Osmolality,Calculated 278.4 MOS/KG (273-304)
[2019-05-25 06:55] LABS: Hypochromasia 1+; Platelet Estimate Increased
[2019-05-25] MEDS: HYDROmorphone 2 MG/1 ML VIAL IV PRN (07:55)
[2019-05-25] MEDS: PIPERACILLIN/TAZOBACTAM 3,375 MG in SODIUM CHLORIDE 0.9% 100 ML IV SCH (07:57)
[2019-05-25] MEDS: MULTIVITAMIN (CENTRUM) TABLET PO SCH (09:27)
[2019-05-25] MEDS: THIAMINE 100 MG TABLET PO SCH (09:27)
[2019-05-25] MEDS: FOLIC ACID 1 MG TABLET PO SCH (09:27)
[2019-05-25] MEDS: PANTOPRAZOLE 40 MG TABLET PO SCH (09:29)
[2019-05-25] MEDS: ZINC OXIDE PASTE 113 GM TUBE TOP SCH (09:31)
[2019-05-25] MEDS: SODIUM HYPOCHLORITE 0.25% IRRIG 473 ML BOTTLE TOP SCH (09:31)
[2019-05-25 12:04] VITALS: BP 153/78
[2019-05-25] MEDS: LACTATED RINGERS 1,000 ML IV SCH (14:06)
== END 2019-05-25 14:21 | disposition home or self-care (01) | DRG 329 ==
LOC: N.ED 07:01 → N.EDINP 08:40 → N.3E 10:13
PROVIDERS: ADMIT Surgery; ATTEND Surgery